=== PATIENT | female | born 1955 | race Caucasian/White ===

== ENCOUNTER → 2017-03-21 | Outpatient (CLI) | payer OTHER ==
[~2017-03-21] MED LIST: CANA300T PO; ESTR0.3T PO; LOSA1TAB69 PO; METF500T4 PO; PROPANOLOL
== END ==
LOC: LABNPT 18:35
PROVIDERS: ATTEND Nurse Practitioner Family
DX: R30.0 Dysuria (principal)
CPT/HCPCS: 87077; 87088; 87186

== ENCOUNTER → 2017-10-22 | Outpatient (CLI) | payer BC ==
[~2017-10-22] MED LIST changes: +LOSA1TAB20 PO; -LOSA1TAB69 PO
== END ==
LOC: RAD 10:56
PROVIDERS: ATTEND Internal Medicine
DX: Z12.31 Encounter for screening mammogram for malignant neoplasm of breast (principal)
CPT/HCPCS: 77067

== ENCOUNTER → 2017-11-08 | Outpatient (CLI) | payer BC ==
--- NOTE | 2017-11-08 14:48 | Diagnostic Imaging Report ---
EXAMINATION: Ultrasound of the right breast. INDICATION: Abnormal mammogram. HISTORY: The screening mammogram performed on 10/22/2017 suggested a small nodular density in the central aspect of the right breast. The diagnostic mammogram performed earlier today in conjunction with this exam suggested that this finding was most likely a benign process. FINDINGS: On this exam, there is a small 7 x 5 x 5 mm hypoechoic lesion with a hyperechoic center in the 4:30 position of the breast roughly 8 cm from the nipple. This has the appearance of a small lymph node . However I'm not certain that this corresponds to the density seen on the mammogram. Even so, there is no other discrete solid or cystic mass visualized. IMPRESSION: The small nodular density seen on the mammogram is of uncertain etiology although most likely benign. There is no evidence for malignancy but a 6 month followup mammogram should be obtained. ACR BI-RADS Category 3: Probably benign findings. Dictated by: Dictated on workstation # [id number]
--- NOTE | 2017-11-08 15:41 | Diagnostic Imaging Report ---
EXAMINATION: Mammogram right diagnostic with CAD. INDICATION: Abnormal mammogram. FINDINGS: The recent screening mammogram performed on 10/22/2017 noted a small nodular density in the central aspect of the right breast on the MLO view. This finding does persist on the compression view of this area in the MLO projection and on the true lateral view. This density is difficult to identify with certainty on the CC projection although it may be in the lateral aspect of the breast. This finding has a generally benign appearance. It may have been present on several prior mammograms although is better visualized on this study. I would recommend that ultrasound be performed for further study. IMPRESSION: The small nodular density in the midportion of the right breast seen previously is most likely a benign process. Ultrasound would be recommended for further study. ACR BI-RADS Category 0: Incomplete. (Needs additional imaging evaluation). Result letter will be mailed to the patient. Note: At least 10% of breast cancer is not imaged by mammography. Dictated by: Dictated on workstation # [id number]
== END ==
LOC: RAD 12:58
PROVIDERS: ATTEND Nurse Practitioner Family
DX: N63.10 Unspecified lump in the right breast, unspecified quadrant (principal)

== ENCOUNTER → 2018-01-28 | Outpatient (CLI) | payer BC ==
--- NOTE | 2018-01-28 08:47 | Diagnostic Imaging Report ---
PROCEDURE: US Thyroid. TECHNIQUE: Multiple real-time grayscale images were obtained of the thyroid in various projections. INDICATION: Thyromegaly. COMPARISON: None. FINDINGS: The left thyroid gland is mildly prominent measuring 5.4 x 1.5 x 1.4 cm. In the mid left thyroid gland, there is a hypoechoic nodule with internal echoes and mild internal vascularity, which has somewhat irregular borders on some images (image 3). This measures 8 x 4 x 6 mm in size. Multiple additional nodules are seen in the left thyroid, measuring approximately 3 mm in size. The echotexture of the thyroid gland is otherwise unremarkable. No hypervascularity is seen. The isthmus appears normal, measuring 3 mm in thickness. The right thyroid gland measures 4.0 x 1.1 x 1.6 cm. Multiple hypoechoic nodules are seen in the right thyroid gland as well. The largest measures 8 x 5 x 6 mm in size, appears cystic, with mild posterior acoustic enhancement, with questionable internal echoes. Additional nodules measure 3-4 mm in size, and are hypoechoic as well. The echotexture of the thyroid gland is otherwise unremarkable, with no hypervascularity seen. IMPRESSION: Multiple small hypoechoic nodules in the thyroid bilaterally, some of which are likely cystic. The largest measure up to 8 mm in diameter. Consider continued sonographic followup to verify stability. Dictated by: Dictated on workstation # [id number]
== END ==
LOC: RAD 07:41
PROVIDERS: ATTEND Nurse Practitioner Family
DX: E04.2 Nontoxic multinodular goiter (principal)
CPT/HCPCS: 76536

== ENCOUNTER 2018-03-30 08:06 | Inpatient (IN) | payer BC ==
[~2018-03-30] VITALS: Ht 163.8 cm; Wt 85.3 kg
[~2018-03-30 08:06] MED LIST changes: -METF500T4 PO; +METF500T5 PO
[2018-03-30] MEDS ORDERED: NS IV 1000 ML 1,000 ML IV ONE (08:26)
[2018-03-30] MEDS ORDERED: METF500T8 PO (08:27)
[2018-03-30] MEDS ORDERED: LIRA0.6P3 SC (08:27)
[2018-03-30] MEDS ORDERED: ASPIRIN 81 MG CHEW (CHILDREN'S ASA) PO ONE (08:30)
[2018-03-30] MEDS ORDERED: raNItidine 50 MG/2 ML INJ (ZANTAC) IJ ONE (08:30)
[2018-03-30] MEDS ORDERED: ONDANSETRON 4 MG/2 ML (SDV) Z0FRAN IVP ONE (08:30)
--- NOTE | 2018-03-30 08:30 | ED Chest Pain ---
General Chief Complaint: Chest Pain Stated Complaint: CP,VOMITING Nursing Triage Note: AMBULATED TO ROOM 07 ET STATES SHE WAS AWAKEND AT 0330 WITH EPIGASTRIC PAIN THAT RADIATES TO HER LOW BACK. STATES SHE HAS BEEN VOMITING BILE AND HAVING DIARRHEA. TOOK A PEPCID THAT DID NOT HELP. Nursing Sepsis Screen: No Definite Risk Source: patient, old records Exam Limitations: no limitations History of Present Illness Date Seen by Provider: Mar 30, 2018 Time Seen by Provider: 08:10 Initial Comments This 62-year-old woman presents to emergency room with complaints of chest pain , epigastric pain, vomiting, and diarrhea that started around 03:30. She woke from sleep with these symptoms. Her chest pain is described as a tightness in the lower sternal area. She identifies no specific alleviating or exacerbating factors. The pain was present before vomiting. She had a little bit of shortness of breath last night but is not short of breath now. She had subjective fever with sweats. She denies any prior episodes but she has had occasional heartburn in the past. She denies any alcohol consumption. She is not a smoker. She has no history of heart disease. She had a stress test in 2010 which was normal. She does have family history of heart disease. She is prediabetic and hypertensive. Allergies and Home Medications Allergies Coded Allergies: latex (Verified Allergy, Severe, SWELLING, 10/15/16) Home Medications Estrogens, Conjugated 0.3 Mg Tablet, 0.3 MG PO DAILY, (Reported) Losartan/Hydrochlorothiazide 1 Each Tablet, 1 EACH PO BID, (Reported) Patient Home Medication List Home Medication List Reviewed: Yes Review of Systems Constitutional: no symptoms reported EENTM: No Symptoms Reported Respiratory: See HPI Cardiovascular: See HPI Gastrointestinal: See HPI Genitourinary: No Symptoms Reported Musculoskeletal: no symptoms reported Skin: no symptoms reported Psychiatric/Neurological: No Symptoms Reported Endocrine: No Symptoms Reported Hematologic/Lymphatic: No Symptoms Reported Past Qezpgfk-[id number]-Xzlkpb Hx Past Med/Social Hx: Reviewed and Corrections made Patient Social History Alcohol Use: Rarely Uses Recreational Drug Use: No Smoking Status: Never a Smoker Recent Foreign Travel: No Contact w/Someone Who Travel: No Recent Infectious Disease Expo: No Recent Hopitalizations: No Immunizations Up To Date Date of Pneumonia Vaccine: Oct 15, 2015 Seasonal Allergies Seasonal Allergies: Yes (MILD) Past Medical History Surgeries: Yes (BACK X2) Hysterectomy, Orthopedic (back and foot surgery) Respiratory: No Pneumonia Cardiac: Yes Hypertension Neurological: No Reproductive Disorders: No 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 Father had CABG.) Physical Exam Vital Signs Vital Signs - First Documented 03/30/18 08:08 Temp 98.0 Pulse 71 Resp 18 B/P (MAP) 147/89 (108) Pulse Ox 100 O2 Delivery Room Air Capillary Refill : Less Than 3 Seconds General Appearance: WD/WN, Other (appears uncomfortable) HEENT: PERRL/EOMI, Normal ENT Inspection, Other (oropharynx dry) Neck: Normal Inspection Respiratory: Lungs Clear, Normal Breath Sounds, No Accessory Muscle Use, No Respiratory Distress Cardiovascular: Regular Rate, Rhythm, No Edema, No Murmur Gastrointestinal: Normal Bowel Sounds, Soft, Tenderness (left upper quadrant) Extremity: Normal Capillary Refill, Normal Inspection, No Calf Tenderness, No Pedal Edema Neurologic/Psychiatric: Alert, Oriented x3, No Motor/Sensory Deficits, Normal Mood/Affect, vp platforms II-XII Norm as Tested Skin: Normal Color, Warm/Dry Progress/Results/Core Measures Results/Orders Lab Results Laboratory Tests Test 03/30/18 08:15 03/30/18 09:35 Range/Units White Blood Count 13.5 H 4.3-11.0 10^3/uL Red Blood Count 4.89 4.35-5.85 10^6/uL Hemoglobin 15.2 11.5-16.0 G/DL Hematocrit 42 35-52 % Mean Corpuscular Volume 86 80-99 FL Mean Corpuscular Hemoglobin 31 25-34 PG Mean Corpuscular Hemoglobin Concent 36 32-36 G/DL Red Cell Distribution Width 12.9 10.0-14.5 % Platelet Count 263 130-400 10^3/uL Mean Platelet Volume 11.0 H 7.4-10.4 FL Neutrophils (%) (Auto) 84 H 42-75 % Lymphocytes (%) (Auto) 11 L 12-44 % Monocytes (%) (Auto) 4 0-12 % Eosinophils (%) (Auto) 1 0-10 % Basophils (%) (Auto) 0 0-10 % Neutrophils # (Auto) 11.3 H 1.8-7.8 X 10^3 Lymphocytes # (Auto) 1.5 1.0-4.0 X 10^3 Monocytes # (Auto) 0.5 0.0-1.0 X 10^3 Eosinophils # (Auto) 0.1 0.0-0.3 10^3/uL Basophils # (Auto) 0.1 0.0-0.1 10^3/uL Prothrombin Time 11.9 L 12.2-14.7 SEC INR Comment 0.9 0.8-1.4 Activated Partial Thromboplast Time 24 24-35 SEC Sodium Level 140 135-145 MMOL/L Potassium Level 3.6 3.6-5.0 MMOL/L Chloride Level 102 98-107 MMOL/L Carbon Dioxide Level 26 21-32 MMOL/L Anion Gap 12 5-14 MMOL/L Blood Urea Nitrogen 17 7-18 MG/DL Creatinine 0.75 0.60-1.30 MG/DL Estimat Glomerular Filtration Rate > 60 BUN/Creatinine Ratio 23 Glucose Level 126 H 70-105 MG/DL Calcium Level 9.5 8.5-10.1 MG/DL Magnesium Level 2.0 1.8-2.4 MG/DL Total Bilirubin 0.6 0.1-1.0 MG/DL Aspartate Amino Transf (AST/SGOT) 23 5-34 U/L Alanine Aminotransferase (ALT/SGPT) 20 0-55 U/L Alkaline Phosphatase 73 40-136 U/L Myoglobin 52.0 10.0-92.0 NG/ML Troponin I < 0.30 <0.30 NG/ML Total Protein 7.3 6.4-8.2 GM/DL Albumin 4.3 3.2-4.5 GM/DL Lipase 66 8-78 U/L Urine Color YELLOW Urine Clarity CLEAR Urine pH 7 5-9 Urine Specific [place] 1.010 L 1.016-1.022 Urine Protein NEGATIVE NEGATIVE Urine Glucose (UA) NEGATIVE NEGATIVE Urine Ketones 2+ H NEGATIVE Urine Nitrite NEGATIVE NEGATIVE Urine Bilirubin NEGATIVE NEGATIVE Urine Urobilinogen NORMAL NORMAL MG/DL Urine Leukocyte Esterase NEGATIVE NEGATIVE Urine RBC (Auto) NEGATIVE NEGATIVE Urine RBC 0-2 /HPF Urine WBC NONE /HPF Urine Squamous Epithelial Cells 2-5 /HPF Urine Crystals NONE /LPF Urine Bacteria TRACE /HPF Urine Casts NONE /LPF Urine Mucus SMALL H /LPF Urine Culture Indicated NO My Orders Orders - AZALEA CARMONA MD Ekg Tracing (03/30/18 08:07) Cbc With Automated Diff (03/30/18 08:25) Magnesium (03/30/18 08:25) Chest 1 View, Ap/Pa Only (03/30/18 08:25) Cardiac Profile 1 (03/30/18 08:25) Comprehensive Metabolic Panel (03/30/18 08:25) Myoglobin Serum (03/30/18 08:25) Protime With Inr (03/30/18 08:25) Partial Thromboplastin Time (03/30/18 08:25) O2 (03/30/18 08:25) Monitor-Rhythm Ecg Trace Only (03/30/18 08:25) Lipid Panel (03/31/18 06:00) Aspirin Chewable Tablet (Baby Aspirin Ch (03/30/18 08:30) Nitroglycerin 0.4 Mg Btl 25's (Nitrostat (03/30/18 08:30) Saline Lock/Iv-Start (03/30/18 08:25) Ondansetron Injection (Zofran Injectio (03/30/18 08:30) Ns Iv 1000 Ml (Sodium Chloride 0.9%) (03/30/18 08:26) Ranitidine Injection (Zantac Injection) (03/30/18 08:30) Lipase (03/30/18 08:30) Lidocaine 2% Viscous 15 Ml (Xylocaine Vi (03/30/18 09:00) Antacid Suspension (Mylanta Suspension (03/30/18 09:00) Fentanyl Injection (Sublimaze Injection (03/30/18 09:45) Ua Culture If Indicated (03/30/18 09:38) Ct [facility] Chest/Noang Abd-Pelv W (03/30/18 09:41) Iohexol Injection (Omnipaque 350 Mg/Ml 1 (03/30/18 10:00) Ns (Ivpb) (Sodium Chloride 0.9%) (03/30/18 10:00) Pharmacy Communication (Pharmacy Communi (03/30/18 09:49) Fentanyl Injection (Sublimaze Injection (03/30/18 11:45) Ciprofloxacin Iv 400mg/200ml (Cipro Iv S (03/30/18 12:45) Medications Given in ED Current Medications Medications Dose Ordered Sig/Jordan Route Start Time Stop Time Status Last Admin Dose Admin Al Hydrox/Mg Hydrox/Simethicone 30 ml ONCE ONCE PO 03/30/18 09:00 03/30/18 09:01 DC 03/30/18 09:05 30 ML Aspirin 324 mg ONCE ONCE PO 03/30/18 08:30 03/30/18 08:31 DC 03/30/18 08:34 324 MG Fentanyl Citrate 50 mcg ONCE ONCE IVP 03/30/18 09:45 03/30/18 09:46 DC 03/30/18 09:44 50 MCG Fentanyl Citrate 75 mcg ONCE ONCE IVP 03/30/18 11:45 03/30/18 11:46 DC 03/30/18 11:50 75 MCG Iohexol 125 ml ONCE ONCE IV 03/30/18 10:00 03/30/18 10:01 DC 03/30/18 10:16 125 ML Lidocaine HCl 15 ml ONCE ONCE PO 03/30/18 09:00 03/30/18 09:01 DC 03/30/18 09:05 15 ML Nitroglycerin 0.4 mg UD PRN SL 03/30/18 08:30 03/30/18 08:41 0.4 MG Ondansetron HCl 8 mg ONCE ONCE IVP 03/30/18 08:30 03/30/18 08:31 DC 03/30/18 08:32 8 MG Ranitidine HCl 50 mg ONCE ONCE IJ 03/30/18 08:30 03/30/18 08:32 DC 03/30/18 08:40 50 MG Sodium Chloride 250 ml ONCE ONCE IV 03/30/18 10:00 03/30/18 10:01 DC 03/30/18 10:16 80 ML Sodium Chloride 1,000 ml @ 0 mls/hr Q0M ONCE IV 03/30/18 08:26 03/30/18 08:27 DC 03/30/18 08:33 1,000 MLS/HR Vital Signs/I&O 03/30/18 08:08 Temp 98.0 Pulse 71 Resp 18 B/P (MAP) 147/89 (108) Pulse Ox 100 O2 Delivery Room Air Blood Pressure Mean: 108 Progress Progress Note #1: Progress Note Patient was seen and examined. Chest pain order set will be followed. Patient will receive aspirin and nitroglycerin. Nausea will be treated with Zofran. Left upper quadrant pain will additionally be treated with ranitidine. EKG was unremarkable. If nitroglycerin does not improve her pain, we will attempt a GI cocktail. Progress Note #2: Time: 08:54 Progress Note Patient's pain decreased from 7/10 down to 6/10 with one nitroglycerin. The second nitroglycerin had no impact on her pain. We will try GI cocktail. Progress Note #3: Time: 12:50 Progress Note GI cocktail was ineffective for treatment of upper abdominal pain. Fentanyl was given and CT scan was pursued for further evaluation. Patient was found to have acute cholecystitis with gallbladder wall thickening and cholelithiasis. Case was reviewed with Dr. Evans who recommends treatment with Cipro and Flagyl as well as admission for anticipated cholecystectomy tomorrow morning. The first dose of Cipro was ordered to be administered in the ER. Initial ECG Impression Date: Mar 30, 2018 Initial ECG Impression Time: 08:11 Initial ECG Rate: 66 Initial ECG Rhythm: Normal Sinus Initial ECG Intervals: Normal Initial ECG Impression: Normal Comment Normal sinus rhythm with no ST elevation or depression. No abnormal intervals or axis deviation. Diagnostic Imaging Diagonstic Imaging: Xray Plain Films/CT/US/NM/MRI: chest Comments Chest x-ray viewed by me and report reviewed. See report below: NAME: LISA [facility] REC#: [id number] PT STATUS: REG ER : 1955 PHYSICIAN: AZALEA CARMONA MD ADMIT DATE: 03/30/18/ER Signed Date of Exam: 03/30/18 CHEST 1 VIEW, AP/PA ONLY Indication: Epigastric pain. Portable chest at 9:02 AM Heart size and pulmonary vascularity are normal. Lungs are clear. There are no effusions or pneumothoraces. Impression: Negative chest. Dictated by: Dictated on workstation # [id number] Dict: 03/30/18 0917 Trans: 03/30/18 1003 Interpreted by: GARRISON RAMIREZ MD Electronically signed by: GARRISON RAMIREZ MD 03/30/18 1003 Diagonstic Imaging: CT Plain Films/CT/US/NM/MRI: chest, abdomen, pelvis Comments CT chest, abdomen and pelvis viewed by me and report reviewed. See report below : NAME: LISA [facility] REC#: [id number] PT STATUS: REG ER : 1955 PHYSICIAN: AZALEA CARMONA MD ADMIT DATE: 03/30/18/ER Signed Date of Exam: 03/30/18 CT MACY CHEST/NOANG ABD-PELV W Indication: Chest pain. Abdominal pain. Comparison: CT lumbar spine dated 08/07/2016 Technique: Postcontrast CTA of the chest, abdomen, and pelvis was performed. Contrast bolus was time for optimal opacification of the arterial structures. Multiplanar and 3-D reformats were also performed and reviewed. Findings: CTA chest: The thoracic aorta is normal in course and caliber. There is no dissection, focal stenosis, nor aneurysm of the thoracic aorta. There is no evidence of pulmonary embolus to the first subsegmental division of the pulmonary arteries. Heart size is within normal limits. There is no large pericardial effusion. No pathologically enlarged or morphologically abnormal adenopathy is seen within the mediastinum, luis alberto, nor axilla. Lung vasques show no focal consolidation, pleural effusion, nor pneumothorax. There is mild dependent atelectasis, bilaterally. No suspicious pulmonary nodules or masses are identified. Bony structures show no acute abnormality. CTA abdomen: There is mild scattered calcified abdominal aortic atherosclerosis. There is no evidence of dissection, focal stenosis, nor aneurysm. The celiac trunk and superior mesenteric arteries are patent, as are their major branches. There are single renal arteries, bilaterally. Renal arteries are widely patent. Inferior mesenteric artery is patent as well. There is cholelithiasis. Note is also made of significant abnormal gallbladder wall thickening and mild distention of the gallbladder. Gallstones are large. Largest measures approximately 2.2 cm in diameter. There is nutmeg enhancement pattern to the liver. Benign cyst is noted within segment 2 of the liver. There is a small nodular focus involving the lateral genu of the left adrenal gland that measures 7 mm. This is incompletely characterized on this exam. There is no prior available for comparison. Otherwise, the right adrenal gland, spleen, pancreas, and kidneys have a normal CT appearance. Small bowel loops are nondistended. Normal appendix cannot be adequately identified. There is apparent thickening of the colon extending from the hepatic flexure through the transverse, descending, and sigmoid colon. This portion of the colon however is decompressed. There is no loculated fluid collection or free air within the abdomen. No abnormal mesenteric or retroperitoneal adenopathy is seen. Bony structures show no acute abnormalities. CTA pelvis: There is no significant atherosclerotic disease of the iliofemoral arteries. There is no focal stenosis. Small amount of free fluid is noted within the pelvis. There is no loculated fluid collection or free air. Urinary bladder is grossly unremarkable. No abnormal lymph nodes are identified. Bony structures show postsurgical changes of the lumbar spine, but no acute abnormalities. Impression: 1. Cholelithiasis with gallbladder wall thickening and mild distention of the gallbladder. Findings are concerning for acute cholecystitis. Please note, gallbladder wall thickening can also be seen secondary to underlying hepatitis and congestive right heart failure. Clinical correlation recommended. If further imaging evaluation is indicated, right upper quadrant abdominal sonogram or HIDA scan is recommended. 2. Nutmeg appearance to the liver. Findings are nonspecific, but can be seen with underlying congestive heart failure or constrictive pericarditis. Findings can also be seen with hepatic venoocclusive disease/Budd-Chiari syndrome. 3. Normal CTA of the chest. 4. Mild calcified abdominal aortic atherosclerosis. 5. Small amount of free fluid within the pelvis. 6. Thickened appearance to the left:. Findings however may be artifactual and related to nondistention. Other considerations include nonspecific infectious or inflammatory colitis, although this is felt to be less likely. Dictated by: Dictated on workstation # [id number] Dict: 03/30/18 1054 Trans: 03/30/18 1152 Interpreted by: SHEILA CARTAGENA MD Electronically signed by: SHEILA CARTAGENA MD 03/30/18 1152 Departure Communication (Admissions) Time/Spoke to Admitting Phy: 12:40 Dr. Evans Impression Primary Impression: Acute cholecystitis Additional Impressions: Nausea vomiting and diarrhea Chest pain Qualified Codes: R07.9 - Chest pain, unspecified Disposition: ADMITTED INPATIENT Condition: Improved Admissions Decision to Admit Reason: Admit from ER (General) Decision to Admit/Date: Mar 30, 2018 Time/Decision to Admit Time: 12:20 Departure-Patient Inst. Referrals: LOYD MCCRAY DO (PCP) Primary Care Physician MEHNAZ MCCRAY, SUE (Family) Primary Care Physician AZALEA CARMONA MD Mar 30, 2018 08:30
[2018-03-30 08:31] LABS: BASOPHILS # (AUTO) 0.1 10^3/uL (0.0-0.1); BASOPHILS % (AUTO) 0 % (0-10); EOSINOPHILS # (AUTO) 0.1 10^3/uL (0.0-0.3); EOSINOPHILS % (AUTO) 1 % (0-10); HEMATOCRIT 42 % (35-52); HEMOGLOBIN 15.2 G/DL (11.5-16.0); LYMPHOCYTES # (AUTO) 1.5 X 10^3 (1.0-4.0); LYMPHOCYTES % (AUTO) 11 % (12-44); MEAN CORPUSCULAR HEMOGLOBIN 31 PG (25-34); MEAN CORPUSCULAR HGB CONC 36 G/DL (32-36); MEAN CORPUSCULAR VOLUME 86 FL (80-99); MONOCYTES # (AUTO) 0.5 X 10^3 (0.0-1.0); MONOCYTES % (AUTO) 4 % (0-12); NEUTROPHILS # (AUTO) 11.3 X 10^3 (1.8-7.8); NEUTROPHILS % (AUTO) 84 % (42-75); PLATELET COUNT 263 10^3/uL (130-400); RED BLOOD COUNT 4.89 10^6/uL (4.35-5.85); RED CELL DISTRIBUTION WIDTH 12.9 % (10.0-14.5); WHITE BLOOD COUNT 13.5 10^3/uL (4.3-11.0)
[2018-03-30] MEDS: NITROGLYCERIN 0.4 MG SL TABS BTL 25'S SL PRN ×2 (08:34→08:41)
[2018-03-30 08:37] LABS: INR 0.9 (0.8-1.4); PROTHROMBIN TIME PATIENT 11.9 SEC (12.2-14.7)
[2018-03-30 08:50] LABS: ALANINE AMINOTRANSFERASE 20 U/L (0-55); ALBUMIN 4.3 GM/DL (3.2-4.5); ALKALINE PHOSPHATASE 73 U/L (40-136); BILIRUBIN,TOTAL 0.6 MG/DL (0.1-1.0); BUN/CREATININE RATIO 23; CALCIUM 9.5 MG/DL (8.5-10.1); CARBON DIOXIDE 26 MMOL/L (21-32); CHLORIDE 102 MMOL/L (98-107); CREATININE SERUM 0.75 MG/DL (0.60-1.30); GFR ESTIMATED > 60; GLUCOSE 126 MG/DL (70-105); POTASSIUM 3.6 MMOL/L (3.6-5.0); SODIUM 140 MMOL/L (135-145); TOTAL PROTEIN 7.3 GM/DL (6.4-8.2)
[2018-03-30] MEDS ORDERED: ANTACID SUSP 30 ML UDC (MYLANTA) PO ONE (09:00)
[2018-03-30] MEDS ORDERED: LIDOCAINE 2% VISCOUS 15 ML UDC PO ONE (09:00)
--- NOTE | 2018-03-30 09:20 | Diagnostic Imaging Report ---
Indication: Epigastric pain. Portable chest at 9:02 AM Heart size and pulmonary vascularity are normal. Lungs are clear. There are no effusions or pneumothoraces. Impression: Negative chest. Dictated by: Dictated on workstation # [id number]
[2018-03-30] MEDS ORDERED: fentaNYL INJECTION 100 MCG/2 ML AMP IVP ONE ×2 (09:45→11:45)
[2018-03-30 09:56] LABS: BILIRUBIN,URINE NEGATIVE (NEGATIVE); CLARITY,URINE CLEAR; COLOR,URINE YELLOW; GLUCOSE, URINE (UA) NEGATIVE (NEGATIVE); KETONES,URINE 2+ (NEGATIVE); LEUKOCYTE ESTERASE ,URINE NEGATIVE (NEGATIVE); NITRITE,URINE NEGATIVE (NEGATIVE); PH,URINE 7 (5-9); PROTEIN,URINE NEGATIVE (NEGATIVE); UROBILINOGEN,URINE NORMAL (NORMAL)
[2018-03-30] MEDS ORDERED: IOHEXOL 350 MG/ML 150 ML (OMNIPAQUE 350) VIAL IV ONE (10:00)
[2018-03-30] MEDS ORDERED: NS 250 ML (IVPB) BAG IV ONE (10:00)
[2018-03-30 10:07] LABS: BACTERIA,URINE TRACE /HPF; RBC,URINE 0-2 /HPF
--- NOTE | 2018-03-30 11:18 | Diagnostic Imaging Report ---
Indication: Chest pain. Abdominal pain. Comparison: CT lumbar spine dated 08/07/2016 Technique: Postcontrast CTA of the chest, abdomen, and pelvis was performed. Contrast bolus was time for optimal opacification of the arterial structures. Multiplanar and 3-D reformats were also performed and reviewed. Findings: CTA chest: The thoracic aorta is normal in course and caliber. There is no dissection, focal stenosis, nor aneurysm of the thoracic aorta. There is no evidence of pulmonary embolus to the first subsegmental division of the pulmonary arteries. Heart size is within normal limits. There is no large pericardial effusion. No pathologically enlarged or morphologically abnormal adenopathy is seen within the mediastinum, luis alberto, nor axilla. Lung vasques show no focal consolidation, pleural effusion, nor pneumothorax. There is mild dependent atelectasis, bilaterally. No suspicious pulmonary nodules or masses are identified. Bony structures show no acute abnormality. CTA abdomen: There is mild scattered calcified abdominal aortic atherosclerosis. There is no evidence of dissection, focal stenosis, nor aneurysm. The celiac trunk and superior mesenteric arteries are patent, as are their major branches. There are single renal arteries, bilaterally. Renal arteries are widely patent. Inferior mesenteric artery is patent as well. There is cholelithiasis. Note is also made of significant abnormal gallbladder wall thickening and mild distention of the gallbladder. Gallstones are large. Largest measures approximately 2.2 cm in diameter. There is nutmeg enhancement pattern to the liver. Benign cyst is noted within segment 2 of the liver. There is a small nodular focus involving the lateral genu of the left adrenal gland that measures 7 mm. This is incompletely characterized on this exam. There is no prior available for comparison. Otherwise, the right adrenal gland, spleen, pancreas, and kidneys have a normal CT appearance. Small bowel loops are nondistended. Normal appendix cannot be adequately identified. There is apparent thickening of the colon extending from the hepatic flexure through the transverse, descending, and sigmoid colon. This portion of the colon however is decompressed. There is no loculated fluid collection or free air within the abdomen. No abnormal mesenteric or retroperitoneal adenopathy is seen. Bony structures show no acute abnormalities. CTA pelvis: There is no significant atherosclerotic disease of the iliofemoral arteries. There is no focal stenosis. Small amount of free fluid is noted within the pelvis. There is no loculated fluid collection or free air. Urinary bladder is grossly unremarkable. No abnormal lymph nodes are identified. Bony structures show postsurgical changes of the lumbar spine, but no acute abnormalities. Impression: 1. Cholelithiasis with gallbladder wall thickening and mild distention of the gallbladder. Findings are concerning for acute cholecystitis. Please note, gallbladder wall thickening can also be seen secondary to underlying hepatitis and congestive right heart failure. Clinical correlation recommended. If further imaging evaluation is indicated, right upper quadrant abdominal sonogram or HIDA scan is recommended. 2. Nutmeg appearance to the liver. Findings are nonspecific, but can be seen with underlying congestive heart failure or constrictive pericarditis. Findings can also be seen with hepatic venoocclusive disease/Budd-Chiari syndrome. 3. Normal CTA of the chest. 4. Mild calcified abdominal aortic atherosclerosis. 5. Small amount of free fluid within the pelvis. 6. Thickened appearance to the left:. Findings however may be artifactual and related to nondistention. Other considerations include nonspecific infectious or inflammatory colitis, although this is felt to be less likely. Dictated by: Dictated on workstation # [id number]
[2018-03-30] MEDS ORDERED: CIPROFLOXACIN IV 400MG/200ML 200 ML IV ONE (12:45)
[2018-03-30] MEDS ORDERED: metroNIDAZOLE 500MG/100ML IVPB 100 ML IV SCH (13:30)
[2018-03-30] MEDS ORDERED: CATHETER FLUSH 10 ML SYR IV PRN (13:45)
[2018-03-30] MEDS ORDERED: ONDANSETRON 4 MG/2 ML (SDV) Z0FRAN IV PRN (13:45)
[2018-03-30] MEDS ORDERED: HYDROcodone/APAP 5 MG/325 MG (LORTAB) TAB PO PRN (13:45)
[2018-03-30] MEDS ORDERED: PROP20TA5 PO (13:48)
[2018-03-30] MEDS: NS W/KCL 20 MEQ/L 1,000 ML IV SCH ×2 (14:02→22:12)
[2018-03-30] MEDS: fentaNYL INJECTION 100 MCG/2 ML AMP IV PRN ×2 (14:02→18:40)
[2018-03-30] MEDS ORDERED: CYAN10006 PO (14:42)
[2018-03-30] MEDS ORDERED: CHOL10007 PO (14:42)
[2018-03-30] MEDS ORDERED: MAGN400T6 PO (14:42)
--- NOTE | 2018-03-30 14:49 | Progress Note-Pre Operative ---
Pre-Operative Progress Note H&P Reviewed The H&P was reviewed, patient examined and no changes noted. Date Seen by Provider: Mar 30, 2018 Time Seen by Provider: 14:45 Date H&P Reviewed: Mar 30, 2018 Time H&P Reviewed: 14:45 Pre-Operative Diagnosis: acute calculous cholecystitis ALIA COTO MD Mar 30, 2018 14:49
--- NOTE | 2018-03-30 15:25 | HISTORY AND PHYSICAL ---
DATE OF SERVICE: ATTENDING PRIMARY CARE PHYSICIAN: Dr. Farias. HISTORY OF PRESENT ILLNESS: The patient is a 62-year-old female who presented to the Emergency Department with chest pain in the left lower region as well as the epigastric region. She also had reported nausea and vomiting overnight as well as diarrhea starting early this morning. She does not report any previous symptoms related to this before in the past as well as no history of known heart problems. Her only risk factor that she knows of is hypertension and an early onset diabetes. She also reports that she has occasional heartburn; however, this is usually after alcohol consumption. A CT scan was performed of the chest and abdomen. The chest appeared normal. Cardiac workup was also normal. The CT scan of the abdomen did show gallbladder with thickened wall as well as multiple gallstones consistent with an acute on chronic calculous cholecystitis. There is also a mild amount of inflammation noted of the colon, which may indicate a low level colitis of unknown etiology at this time. PAST MEDICAL HISTORY: Hypertension, early diabetes, degenerative joint disease. PAST SURGICAL HISTORY: Lumbar vertebral ORIF with revision, total transvaginal hysterectomy, left fifth toe neuroma excision. ALLERGIES: LATEX. MEDICATIONS: Estrogen 0.3 mg daily, losartan/hydrochlorothiazide b.i.d. SOCIAL HISTORY: Negative smoke, rare social alcohol. FAMILY HISTORY: Daughter with melanoma. Father heart disease. Mother, heart disease. VITAL SIGNS: Temperature 98.0, blood pressure 147/89, pulse 71, respirations 18, pulse ox 100% on room air. REVIEW OF SYSTEMS: Well-nourished female currently in no acute distress. She is not experiencing any shortness of breath or difficulty breathing. No chest pain, palpitations, diaphoresis. No nausea, vomiting. Has not had a bowel movement since admission. No fever, chills. No recent inadvertent weight loss. No red blood per rectum, no dark tarry stools. No recent inadvertent weight loss. All other review of systems negative. PHYSICAL EXAMINATION: CHEST: Clear. Good breath sounds bilaterally. HEART: Regular, no murmurs. EXTREMITIES: No lower extremity edema, negative Homans sign. HEENT: No scleral icterus. NECK: No cervical lymphadenopathy. ABDOMEN: Soft, nondistended. There is pain in the right upper abdominal quadrant with a positive Whaley sign. There is also mild mid abdominal pain upon palpation as well. However, no peritoneal signs. SKIN: Warm, dry. LABORATORY DATA: WBC 13.5, hemoglobin 15.2, hematocrit 42, platelets 263, total bilirubin 0.6, lipase 66. ASSESSMENT AND PLAN: A 62-year-old female with acute on chronic calculous cholecystitis. The natural history of this disease process was explained to the patient as well as risk for recurrence and other complications including abscess and perforation. She is in full understanding of this and would like to proceed with a laparoscopic cholecystectomy which we will schedule. It appears that she also does have a mild colitis; however, this may be due to recent diarrhea which may need to be evaluated at a later time. She did have a colonoscopy approximately 2007 and does not remember any abnormalities at that time. Job ID: [id number] DocumentID: [id number] Dictated Date: 03/30/2018 14:57:03 Web Feeder Date: 03/30/2018 15:24:44 Dictated By: ALIA COTO MD MTDD
[2018-03-30 16:00] VITALS: BP 130/61
[2018-03-30 19:30] VITALS: BP 132/62
[2018-03-30] MEDS: metroNIDAZOLE 500MG/100ML IVPB 100 ML IV SCH (20:57)
[2018-03-30] MEDS: FAMOTIDINE 20 MG (PEPCID) TABLET PO SCH (20:57)
[2018-03-30] MEDS: CIPROFLOXACIN IV 400MG/200ML 200 ML IV SCH (22:12)
[2018-03-30] MEDS: ACETAMINOPHEN 325 MG TABLET/CAPLET (TYLENOL) PO PRN (22:27)
[2018-03-31] VITALS (8 sets, daily range): BP systolic 93–184; BP diastolic 46–86
[2018-03-31] MEDS: NS W/KCL 20 MEQ/L 1,000 ML IV SCH ×2 (03:08→14:31)
[2018-03-31] MEDS: metroNIDAZOLE 500MG/100ML IVPB 100 ML IV SCH ×3 (03:09→14:42)
[2018-03-31] MEDS: ACETAMINOPHEN 325 MG TABLET/CAPLET (TYLENOL) PO PRN (03:15)
[2018-03-31 06:08] LABS: CHOLESTEROL 156 MG/DL (< 200); HDL CHOLESTEROL 44 MG/DL (40-60); TRIGLYCERIDES 87 MG/DL (<150); VLDL CHOLESTEROL 17 MG/DL (5-40)
[2018-03-31] MEDS: FAMOTIDINE 20 MG (PEPCID) TABLET PO SCH ×2 (08:10→20:52)
[2018-03-31] MEDS: CIPROFLOXACIN IV 400MG/200ML 200 ML IV SCH (09:33)
[2018-03-31] MEDS ORDERED: BUP/EPI 0.5% 1:200,000 (SENSORCAINE) 30 ML VIAL ONE (12:15)
[2018-03-31] MEDS ORDERED: proPOfol 200 MG/20 ML (DIPRIVAN) VIAL IV ONE (14:03)
[2018-03-31] MEDS ORDERED: fentaNYL INJECTION 100 MCG/2 ML AMP ONE ×2 (14:03→15:23)
[2018-03-31] MEDS ORDERED: LIDOCAINE PF 2% 5 ML (XYLOCAINE) VIAL ONE (14:03)
[2018-03-31] MEDS ORDERED: SEVOFLURANE (ULTANE) 15 ML INHAL SOLN ONE ×3 (14:03→16:21)
[2018-03-31] MEDS ORDERED: ONDANSETRON 4 MG/2 ML (SDV) Z0FRAN ONE (14:03)
[2018-03-31] MEDS ORDERED: MIDAZOLAM 2 MG/2 ML (VERSED) VIAL ONE (14:04)
[2018-03-31] MEDS ORDERED: ROCURONIUM 10 MG/ML 5 ML SYRINGE IV ONE (14:07)
[2018-03-31] MEDS ORDERED: ceFAZolin 1,000 MG (ANCEF) VIAL ONE (14:18)
[2018-03-31] MEDS ORDERED: FAMOTIDINE 20MG/2ML IV (PEPCID) ONE (14:41)
[2018-03-31] MEDS: LACTATED RINGERS 1,000 ML IV PRN ×2 (14:42→15:28)
[2018-03-31] MEDS ORDERED: HYDROmorphone 1 MG/ML (DILAUDID) 1 ML SYRINGE ONE (15:02)
[2018-03-31] MEDS ORDERED: GLYCOPYRROLATE 0.2 MG/ML (ROBINUL) 2 ML VIAL ONE (15:43)
[2018-03-31] MEDS ORDERED: NEOSTIGMINE 1 MG/ML 5 ML SYRINGE ONE (15:43)
[2018-03-31] MEDS ORDERED: ROPIVACAINE 5MG/ML 30ML VIAL ONE (15:48)
--- NOTE | 2018-03-31 16:21 | Progress Note-Post Operative ---
Post-Operative Progess Note Surgeon (s)/Linux Vmware Administrator (s) Surgeon ALIA COTO MD Linux Vmware Administrator: [facility] Pre-Operative Diagnosis acute calculous cholecystitis Post-Operative Diagnosis same Procedure & Operative Findings Date of Procedure 03/31/18 Procedure Performed/Findings laparoscopic cholecystectomy Anesthesia Type GET Estimated Blood Loss Estimated blood loss (mL): minimal Specimens/Packing Specimens Removed gallbladder ALIA COTO MD Mar 31, 2018 4:21 pm
[2018-03-31] MEDS ORDERED: HYDR-34 PO (16:24)
--- NOTE | 2018-03-31 16:25 | Discharge Inst-Surgical ---
D/C Lap Instructions-CHICA New, Converted, or Re-Newed RX: RX on Chart Follow Up Appt in 2 weeks Activity as tolerated No driving for 24 hours No driving while on pain medications Incentive Spirometry use every 2 hours while awake Regular Diet Symptoms to Report: Fever over 101 degree F, Nausea/Vomiting Infection Signs and Symptoms to report: Increased redness, Foul odor of wound, Increased drainage Bathing instructions: May shower Operative Area Clean/Dry; Keep incision clean/dry If any problems/questions: Contact your physician or go to Emergency Room ALIA COTO MD Mar 31, 2018 4:25 pm
[2018-03-31] MEDS ORDERED: MEPERIDINE (DEMEROL) INJ 50 MG/ML IVP PRN (17:00)
[2018-03-31] MEDS: fentaNYL INJECTION 100 MCG/2 ML AMP IVP PRN ×2 (17:00→17:10)
[2018-03-31] MEDS ORDERED: ONDANSETRON 4 MG/2 ML (SDV) Z0FRAN IVP PRN (17:00)
--- NOTE | 2018-03-31 17:21 | Anesthesia-General Post-Op ---
General Patient Condition Mental Status/LOC: Same as Preop Cardiovascular: Satisfactory Nausea/Vomiting: Absent Respiratory: Satisfactory Pain: Controlled Complications: Absent Post Op Complications Complications None Follow Up Care/Instructions Patient Instructions None needed. Anesthesia/Patient Condition Patient Condition Patient is doing well, no complaints, stable vital signs, no apparent adverse anesthesia problems. No complications reported per nursing. CONCHIS VILLEGAS CRNA Mar 31, 2018 17:21
--- NOTE | 2018-03-31 19:43 | OPERATIVE REPORT ---
DATE OF SERVICE: 03/31/2018 ATTENDING PRIMARY CARE PHYSICIAN: Dr. Farias. PREOPERATIVE DIAGNOSIS: Acute calculous cholecystitis. POSTOPERATIVE DIAGNOSIS: Acute calculous cholecystitis. PROCEDURE: Laparoscopic cholecystectomy. SURGEON: Alia Coto MD ANESTHESIA: General endotracheal. ESTIMATED BLOOD LOSS: Minimal. FINDINGS: Acute gallbladder wall inflammation and edema, no perforation. Multiple large gallstones. DISPOSITION: The patient tolerated the procedure well. INDICATIONS: The patient is a 62-year-old female who presented to the Emergency Department with chest pain in the left lower region as well as epigastric region. 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 She does not report any previous symptoms related to this before in the past as well as no history of known heart problems. Her only risk factor she knows is hypertension as well as early onset diabetes. She reports that she does have occasional episodes of heartburn; however, this was usually after alcohol consumption. A CT scan was performed of the chest and abdomen. The chest appeared normal as well as a cardiac workup. CT scan of the abdomen did show gallbladder wall thickening as well as multiple gallstones. There is also mild inflammation of the colon, which may indicate a colitis of unknown etiology at this time. She does not report taking antibiotics for another reason in recent weeks or months. DESCRIPTION OF PROCEDURE: The patient was brought to the operating room, laid supine on the table. After adequate IV pain and sedating medications and general endotracheal intubation, the abdomen was prepped and draped in standard surgical fashion. A 0.5% Marcaine with epinephrine was then used to anesthetize the overlying skin in the left upper abdominal quadrant and a small transverse skin incision made using a 15 blade. An 0 silk suture was applied to the medial aspect of the incision for retraction and a Veress needle inserted with a low opening pressure of 0 mmHg and the abdomen was then insufflated to 15 mmHg pressure. The Veress needle was removed and a 5 mm Xcel visualizing the peritoneal cavity. A 4-quadrant abdominal exploration was performed. There was gallbladder wall thickening, distention as well as the edema and flores-edema around the gallbladder consistent with an acute cholecystitis. What was visualized the liver, omentum, small bowel appeared normal. Under direct visualization, we then proceeded to place a supraumbilical 10 mm port after the skin and peritoneal lining were anesthetized using 0.5% Marcaine with epinephrine and a transverse skin incision made using a 15 blade. A right upper abdominal quadrant 5 mm port was then placed under direct visualization. The gallbladder was first decompressed with a laparoscopic needle and suctioned with draining of bile. The fundus of the gallbladder was then retracted anteriorly and superiorly. The patient was then placed in reverse Trendelenburg position as well as plane right side up, left side down. The omental adhesions were then taken down using blunt dissection as well as electrocautery on the hook instrument. The hepatoduodenal ligament was then opened using the hook instrument and electrocautery as well as blunt dissection. The entire critical view of safety was identified including the triangle of Calot as well as the cystic duct and artery as the only two structures going into the gallbladder as well as the cystic plate behind the proximal gallbladder. A timeout was then taken. The cystic duct and artery were then clipped proximally, distally and cut with EndoShears. The gallbladder was then dissected off of the liver bed using electrocautery and hook instrument with visualization of good hemostasis as well as no leaking ducts of Luschka. The area was then copiously irrigated and suctioned out with visualization of good hemostasis. The gallbladder was removed through the 10 mm port site using an EndoCatch bag. The 10 mm port site fascia and peritoneum were then closed using a 0 Vicryl suture on a UR needle [id number] style. The remaining ports removed and all skin incisions were closed using 4-0 Monocryl running subcuticular sutures. The patient tolerated the procedure well. We will start IV and oral pain medication as well as a clear liquid diet. Once she is tolerating clears, has good pain control with oral pain medications, ambulating well, we will discharge her home. We will have her do no heavy lifting or exertion for the next two weeks as well. Job ID: [id number] DocumentID: [id number] Dictated Date: 03/31/2018 16:33:26 Drywall Hanger Framer Date: 03/31/2018 19:43:09 Dictated By: ALIA COTO MD [facility]
[2018-03-31] MEDS ORDERED: HYDROcodone/APAP 7.5 MG/325 MG (LORTAB, LORCET PLUS) TABLET PO PRN (21:15)
[2018-03-31] MEDS ORDERED: CIPROFLOXACIN 500 MG (CIPRO) TABLET PO SCH (21:15)
[2018-03-31] MEDS ORDERED: metroNIDAZOLE 500 MG (FLAGYL) TAB PO SCH (21:15)
[2018-04-01 00:01] VITALS: BP 127/62
[2018-04-01 04:53] VITALS: BP 135/63
[2018-04-01 07:59] VITALS: BP 135/63
== END 2018-04-01 08:03 | disposition home or self-care (01) | DRG 419 ==
LOC: EDUNIT# 08:06 → ER 08:07 → 4TH 12:47
PROVIDERS: ADMIT Surgery; ATTEND Surgery
PROC: 0FT44ZZ Resection of Gallbladder, Percutaneous Endoscopic Approach (ICD-10-PCS; principal; 2018-03-31 14:44)
DX: K80.12 Calculus of gallbladder with acute and chronic cholecystitis without obstruction (principal); K52.9 Noninfective gastroenteritis and colitis, unspecified; I10 Essential (primary) hypertension; R73.03 Prediabetes; J30.2 Other seasonal allergic rhinitis; M19.041 Primary osteoarthritis, right hand; M19.042 Primary osteoarthritis, left hand; M16.0 Bilateral primary osteoarthritis of hip; Z82.49 Family history of ischemic heart disease and other diseases of the circulatory system; Z90.710 Acquired absence of both cervix and uterus; Z79.890 Hormone replacement therapy
CPT/HCPCS: 36415; 71045; 71275; 74177; 80053; 80061; 81000; 83690; 83735; 83874; 84484; 85025; 85610; 85730; 87081; 88304; 93005; 93041; 96361; 96374; 96375; 96376

== ENCOUNTER → 2018-04-08 | Outpatient (CLI) | payer BC ==
[~2018-04-08] MED LIST changes: +CHOL10007 PO; +CYAN10006 PO; +HYDR-34 PO; +LIRA0.6P3 SC; +MAGN400T6 PO; +METF500T8 PO; +PROP20TA5 PO
--- NOTE | 2018-04-08 09:57 | Diagnostic Imaging Report ---
INDICATION: Six-month followup right breast nodule. COMPARISON: 10/22/2017 and 11/08/2017. TECHNIQUE: 2D and 3D unilateral right diagnostic mammography was performed including CC, MLO, and ML views. The current study was also evaluated with a Computer Aided Detection (CAD) system. FINDINGS: The circumscribed nodular density in the right breast is again noted. This appears to be laterally located at approximately the 9 o'clock location 5 cm from the nipple. No associated calcifications are seen. No other masses are identified. The right axilla is unremarkable. IMPRESSION: Stable circumscribed nodule at approximately the 9 o'clock location of the right breast 5 cm from the nipple when compared with the prior mammograms. This has fairly benign features. Even so, sonographic interrogation is recommended for further evaluation. ACR BI-RADS Category 0: Incomplete. (Needs additional imaging evaluation). Result letter will be mailed to the patient. Note: At least 10% of breast cancer is not imaged by mammography. Dictated by: Dictated on workstation # [id number]
--- NOTE | 2018-04-08 11:49 | Diagnostic Imaging Report ---
INDICATION: Right breast nodule. COMPARISON: Correlation is made with the diagnostic mammogram from earlier this same day. TECHNIQUE: Sonographic interrogation of the outer right breast was performed. FINDINGS: No sonographic abnormality is seen. No solid or cystic mass is detected to account for the circumscribed nodular density at the 9 o'clock location on mammography. In addition, the previously noted lymph node at the 4:30 location of the left breast is no longer visualized. IMPRESSION: No sonographic abnormality is identified. A 6 month followup mammogram is recommended to show continued stability of the tiny circumscribed nodule in the central slightly outer right breast 5 cm from the nipple, best seen mammographically. ACR BI-RADS Category 3: Probably benign findings. Result letter will be mailed to the patient. Note: At least 10% of breast cancer is not imaged by mammography. Dictated by: Dictated on workstation # [id number]
== END ==
LOC: RAD 09:08
PROVIDERS: ATTEND Internal Medicine
DX: N63.10 Unspecified lump in the right breast, unspecified quadrant (principal)

== ENCOUNTER → 2018-05-02 | Outpatient (CLI) | payer BC ==
[2018-05-05 13:42] LABS: CREATININE CAT FR MG/DL 64 mg/dL; EPINEPHRINE RATIO 3 ug/g CRT (0-20); URINE VOLUME CAT 1800 mL
== END ==
LOC: LAB 07:18
PROVIDERS: ATTEND Internal Medicine Endocrinology, Diabetes & Metabolism
DX: E27.8 Other specified disorders of adrenal gland (principal)
CPT/HCPCS: 82384; 82530; 83835

== ENCOUNTER 2018-05-27 05:21 | Outpatient (CLI) | payer BC ==
[~2018-05-27] VITALS: Ht 163.8 cm; Wt 85.3 kg
== END 2018-05-27 10:42 ==
LOC: PREOP 05:21
PROVIDERS: ATTEND Surgery
DX: Z01.818 Encounter for other preprocedural examination (principal); Z12.11 Encounter for screening for malignant neoplasm of colon

== ENCOUNTER 2018-06-03 10:59 | Day surgery (SDC) | payer BC ==
[~2018-06-03] VITALS: Ht 163.8 cm; Wt 85.3 kg
[2018-06-03] MEDS ORDERED: NS IV 500 ML 500 ML IV PRN (11:07)
--- OUTSIDE RECORDS SUMMARY | 2018-06-03 11:09 | XMS REPORT | Continuity of Care Document ---
Author Author [facility] Organization [facility] Address Unknown Phone Unavailable Allergies Active Description Code Type Severity Reaction Onset Reported/Identified Relationship to Patient Clinical Status Yes latex [id number] Drug Allergy Severe SWELLING 10/15/2016 Medications There is no data. Problems Date Dx Coded Attending Type Code Diagnosis Diagnosed By 06/10/2015 JEREMY ARNETT DO Ot 349.0 LUMBAR PUNCTURE REACTION 06/10/2015 JEREMY ARNETT DO Ot 784.0 HEADACHE 08/29/2015 LOYD MCCRAY DO Ot Z00.00 10/04/2015 EARL PINTO, ALYSE Laird Z09 10/04/2015 EARL PINTO, ALYSE Ot Z98.1 12/20/2015 Ot V76.12 12/20/2015 Ot 786.50 12/20/2015 Ot V58.69 12/20/2015 Ot V76.12 12/20/2015 MEHNAZ MCCRAY TACTICAL/MOBILE WATCH OFFICER Ot V76.12 12/20/2015 MEHNAZ DELAROSA BLADDER BLOWER Ot 793.80 12/20/2015 SANTANA PINTO, PETAR Mckee Ot 786.2 12/20/2015 CHRIS MCCRAYIA L TACTICAL/MOBILE WATCH OFFICER Ot 793.80 12/20/2015 MEHNAZ MCCRAY TACTICAL/MOBILE WATCH OFFICER Ot V67.9 12/20/2015 MARY MCCRAYRICIA L TACTICAL/MOBILE WATCH OFFICER Ot 251.2 12/20/2015 CHRIS MCCRAYIA L TACTICAL/MOBILE WATCH OFFICER Ot 401.9 12/20/2015 ALLY PINTO, MEGAN Reynolds Ot 724.5 12/20/2015 LOYD MCCRAY DO Ot 793.80 12/20/2015 MEHANZ MCCRAY L TACTICAL/MOBILE WATCH OFFICER Ot 401.9 12/20/2015 MEHNAZ MCCRAY L TACTICAL/MOBILE WATCH OFFICER Ot V72.83 12/20/2015 MEHNAZ MCCRAY TACTICAL/MOBILE WATCH OFFICER Ot V74.8 12/20/2015 EARL PINTO, ALYSE Ot 738.4 12/20/2015 EARL PINTO, ALYSE Ot V45.4 12/20/2015 EARL PINTO, ALYSE Ot 738.4 12/20/2015 EARL PINTO, ALYSE Ot V45.4 12/20/2015 EARL PINTO, ALYSE Ot V67.09 12/20/2015 MEHNAZ MCCRAY TACTICAL/MOBILE WATCH OFFICER Ot 611.71 12/20/2015 MEHNAZ MCCRAY TACTICAL/MOBILE WATCH OFFICER Ot 756.12 12/20/2015 MEHNAZ MCCRAY TACTICAL/MOBILE WATCH OFFICER Ot V45.4 12/20/2015 MEHNAZ MCCRAY TACTICAL/MOBILE WATCH OFFICER Ot V67.09 12/20/2015 LOYD MCCRAY DO Ot Z00.00 12/20/2015 EARL PINTO, ALYSE Ot Z09 12/20/2015 EARL PINTO, ALYSE Ot Z98.1 01/06/2016 EARL PINTO, ALYSE Ot M43.16 01/06/2016 EARL PINTO, ALYSE Ot M47.896 01/06/2016 EARL PINTO, ALYSE Ot M53.2X7 01/06/2016 EARL PINTO, ALYSE Ot M54.10 01/06/2016 EARL PINTO, ALYSE Ot Z09 01/06/2016 EARL PINTO, ALYSE Ot Z98.1 02/06/2016 EARL PINTO, ALYSE Ot M43.16 02/06/2016 EARL PINTO, ALYSE Ot M47.896 02/06/2016 EARL PINTO, ALYSE Ot M53.2X7 02/06/2016 EARL PINTO, ALYSE Ot M54.10 02/06/2016 EARL PINTO, ALYSE Ot Z09 02/06/2016 EARL PINTO, ALYSE Ot Z98.1 08/04/2016 LOYD MCCRAY DO Ot Z12.31 ENCNTR SCREEN MAMMOGRAM FOR MALIGNANT NE 08/04/2016 LOYD MCCRAY DO Ot Z12.31 ENCNTR SCREEN MAMMOGRAM FOR MALIGNANT NE 08/05/2016 Ot 786.50 CHEST PAIN NOS 08/05/2016 Ot V58.69 OTH MED,LT, CURRENT USE 08/05/2016 Ot V76.12 OTH SCREEN MAMMO-MALIGN NEOPLASM OF [place] 08/05/2016 MEHNAZ MCCRAY TACTICAL/MOBILE WATCH OFFICER Ot V76.12 OTH SCREEN MAMMO-MALIGN NEOPLASM OF [place] 08/05/2016 MEHNAZ DELAROSA BLADDER BLOWER Ot 793.80 UNSPEC ABNORMAL MAMMOGRAM 08/05/2016 SANTANA PINTO, PETAR Mckee Ot 786.2 COUGH 08/05/2016 MEHNAZ MCCRAY TACTICAL/MOBILE WATCH OFFICER Ot 793.80 UNSPEC ABNORMAL MAMMOGRAM 08/05/2016 MEHNAZ MCCRAY TACTICAL/MOBILE WATCH OFFICER Ot V67.9 FOLLOW-UP EXAM NOS 08/05/2016 MEHNAZ MCCRAY TACTICAL/MOBILE WATCH OFFICER Ot 251.2 HYPOGLYCEMIA NOS 08/05/2016 MEHNAZ MCCRAY TACTICAL/MOBILE WATCH OFFICER Ot 401.9 HYPERTENSION NOS 08/05/2016 ALLY PINTO, MEGAN Reynolds Ot 724.5 BACKACHE NOS 08/05/2016 LOYD MCCRAY DO Ot 793.80 UNSPEC ABNORMAL MAMMOGRAM 08/05/2016 MEHNAZ MCCRAY L TACTICAL/MOBILE WATCH OFFICER Ot 401.9 HYPERTENSION NOS 08/05/2016 MEHNAZ MCCRAY TACTICAL/MOBILE WATCH OFFICER Ot V72.83 EXAM PRE-OPERATIVE NEC 08/05/2016 MEHNAZ MCCRAY TACTICAL/MOBILE WATCH OFFICER Ot V74.8 SCREEN-BACTERIAL DIS NEC 08/05/2016 EARL PINTO, ALYSE Ot 738.4 ACQ SPONDYLOLISTHESIS 08/05/2016 EARL PINTO, ALYSE Ot V45.4 ARTHRODESIS STATUS 08/05/2016 EARL PINTO, ALYSE Ot 738.4 ACQ SPONDYLOLISTHESIS 08/05/2016 EARL PINTO, ALYSE Ot V45.4 ARTHRODESIS STATUS 08/05/2016 EARL PINTO, ALYSE Ot V67.09 SURGERY FOLLOW-UP, OTHER SURGERY 08/05/2016 MEHNAZ MCCRAY TACTICAL/MOBILE WATCH OFFICER Ot 611.71 MASTODYNIA 08/05/2016 MEHNAZ MCCRAY TACTICAL/MOBILE WATCH OFFICER Ot 756.12 SPONDYLOLISTHESIS 08/05/2016 MEHNAZ MCCRAY TACTICAL/MOBILE WATCH OFFICER Ot V45.4 ARTHRODESIS STATUS 08/05/2016 MEHNAZ MCCRAY TACTICAL/MOBILE WATCH OFFICER Ot V67.09 SURGERY FOLLOW-UP, OTHER SURGERY 08/05/2016 LOYD MCCRAY DO Ot Z00.00 ENCNTR FOR GENERAL ADULT MEDICAL EXAM W/ 08/05/2016 EARL PINTO, ALYSE Ot Z09 ENCNTR FOR F/U EXAM AFT TRTMT FOR COND O 08/05/2016 EARL PINTO, ALYSE Ot Z98.1 ARTHRODESIS STATUS 08/05/2016 EARL PINTO, ALYSE Ot M43.16 SPONDYLOLISTHESIS, LUMBAR REGION 08/05/2016 EARL PINTO, ALYSE Ot M47.896 OTHER SPONDYLOSIS, LUMBAR REGION 08/05/2016 EARL PINTO, ALYSE Ot M53.2X7 SPINAL INSTABILITIES, LUMBOSACRAL REGION 08/05/2016 EARL PINTO, ALYSE Ot M54.10 RADICULOPATHY, SITE UNSPECIFIED 08/05/2016 EARL PINTO, ALYSE Ot Z09 ENCNTR FOR F/U EXAM AFT TRTMT FOR COND O 08/05/2016 EARL PINTO, ALYSE Ot Z98.1 ARTHRODESIS STATUS 08/05/2016 LOYD MCCRAY DO Ot Z12.31 ENCNTR SCREEN MAMMOGRAM FOR MALIGNANT NE 08/06/2016 LOYD MCCRAY DO Ot Z12.31 ENCNTR SCREEN MAMMOGRAM FOR MALIGNANT NE 08/11/2016 EARL PINTO, ALYSE Ot M43.10 SPONDYLOLISTHESIS, SITE UNSPECIFIED 08/11/2016 EARL PINTO, ALYSE Ot M47.896 OTHER SPONDYLOSIS, LUMBAR REGION 08/11/2016 EARL PINTO, ALYSE Ot M54.5 LOW BACK PAIN 08/11/2016 EARL PINTO, ALYSE Ot Z09 ENCNTR FOR F/U EXAM AFT TRTMT FOR COND O 08/11/2016 EARL PINTO, ALYSE Ot Z98.1 ARTHRODESIS STATUS 08/21/2016 LOYD MCCRAY DO Ot Z12.31 ENCNTR SCREEN MAMMOGRAM FOR MALIGNANT NE 08/26/2016 EARL PINTO, ALYSE Ot M43.10 SPONDYLOLISTHESIS, SITE UNSPECIFIED 08/26/2016 EARL PINTO, ALYSE Ot M47.896 OTHER SPONDYLOSIS, LUMBAR REGION 08/26/2016 EARL PINTO, ALYSE Ot M54.5 LOW BACK PAIN 08/26/2016 EARL PINTO, ALYSE Ot Z09 ENCNTR FOR F/U EXAM AFT TRTMT FOR COND O 08/26/2016 EARL PINTO, ALYSE Ot Z98.1 ARTHRODESIS STATUS 10/15/2016 TRIANA DPM, ODETTE P Ot G57.82 OTHER SPECIFIED MONONEUROPATHIES OF LEFT 10/15/2016 TRIANA DPM, ODETTE P Ot Z01.818 ENCOUNTER FOR OTHER PREPROCEDURAL EXAMIN 10/15/2016 TRIANA DPM, ODETTE P Ot Z11.2 ENCOUNTER FOR SCREENING FOR OTHER BACTER 10/16/2016 TRIANA DPM, ODETTE P Ot G57.82 OTHER SPECIFIED MONONEUROPATHIES OF LEFT 10/16/2016 TRIANA DPM, ODETTE P Ot Z01.818 ENCOUNTER FOR OTHER PREPROCEDURAL EXAMIN 10/16/2016 TRIANA DPM, ODETTE P Ot Z11.2 ENCOUNTER FOR SCREENING FOR OTHER BACTER 10/23/2016 TRIANA DPM, ODETTE P Ot G57.62 LESION OF PLANTAR NERVE, LEFT LOWER LIMB 10/23/2016 TRIANA DPM, ODETTE P Ot R73.03 PREDIABETES 10/26/2016 TRIANA DPM, ODETTE P Ot G57.62 LESION OF PLANTAR NERVE, LEFT LOWER LIMB 10/26/2016 TRIANA DPM, ODETTE P Ot R73.03 PREDIABETES 10/29/2016 TRIANA DPM, ODETTE P Ot G57.62 LESION OF PLANTAR NERVE, LEFT LOWER LIMB 10/29/2016 TRIANA DPM, ODETTE P Ot R73.03 PREDIABETES 03/27/2017 LORENA HSU BLADDER BLOWER Ot R30.0 DYSURIA 03/30/2017 LORENA HSU BLADDER BLOWER Ot R30.0 DYSURIA 06/25/2017 Ot V76.12 OTH SCREEN MAMMO-MALIGN NEOPLASM OF [place] 06/25/2017 MEHNAZ MCCRAY TACTICAL/MOBILE WATCH OFFICER Ot V76.12 OTH SCREEN MAMMO-MALIGN NEOPLASM OF [place] 06/25/2017 MEHNAZ DELAROSA BLADDER BLOWER Ot 793.80 UNSPEC ABNORMAL MAMMOGRAM 06/25/2017 SANTANA PINTO, PETAR R Ot 786.2 COUGH 06/25/2017 MEHNAZ MCCRAY TACTICAL/MOBILE WATCH OFFICER Ot 793.80 UNSPEC ABNORMAL MAMMOGRAM 06/25/2017 MEHNAZ MCCRAY TACTICAL/MOBILE WATCH OFFICER Ot V67.9 FOLLOW-UP EXAM NOS 06/25/2017 MEHNAZ MCCRAY TACTICAL/MOBILE WATCH OFFICER Ot 251.2 HYPOGLYCEMIA NOS 06/25/2017 MEHNAZ MCCRAY TACTICAL/MOBILE WATCH OFFICER Ot 401.9 HYPERTENSION NOS 06/25/2017 ALLY PINTO, MEGAN Reynolds Ot 724.5 BACKACHE NOS 06/25/2017 LOYD MCCRAY DO Ot 793.80 UNSPEC ABNORMAL MAMMOGRAM 06/25/2017 MEHNAZ MCCRAY TACTICAL/MOBILE WATCH OFFICER Ot 401.9 HYPERTENSION NOS 06/25/2017 MEHNAZ MCCRAY TACTICAL/MOBILE WATCH OFFICER Ot V72.83 EXAM PRE-OPERATIVE NEC 06/25/2017 MEHNAZ MCCRAY TACTICAL/MOBILE WATCH OFFICER Ot V74.8 SCREEN-BACTERIAL DIS NEC 06/25/2017 EARL PINTO, ALYSE Ot 738.4 ACQ SPONDYLOLISTHESIS 06/25/2017 EARL PINTO, ALYSE Ot V45.4 ARTHRODESIS STATUS 06/25/2017 EARL PINTO, ALYSE Ot 738.4 ACQ SPONDYLOLISTHESIS 06/25/2017 EARL PINTO, ALYSE Ot V45.4 ARTHRODESIS STATUS 06/25/2017 EARL PINTO, ALYSE Ot V67.09 SURGERY FOLLOW-UP, OTHER SURGERY 06/25/2017 MEHNAZ MCCRAY TACTICAL/MOBILE WATCH OFFICER Ot 611.71 MASTODYNIA 06/25/2017 MEHNAZ MCCRAY TACTICAL/MOBILE WATCH OFFICER Ot 756.12 SPONDYLOLISTHESIS 06/25/2017 MEHNAZ MCCRAY TACTICAL/MOBILE WATCH OFFICER Ot V45.4 ARTHRODESIS STATUS 06/25/2017 MEHNAZ MCCRAY TACTICAL/MOBILE WATCH OFFICER Ot V67.09 SURGERY FOLLOW-UP, OTHER SURGERY 06/25/2017 LOYD MCCRAY DO Ot Z00.00 ENCNTR FOR GENERAL ADULT MEDICAL EXAM W/ 06/25/2017 EARL PINTO, ALYSE Ot Z09 ENCNTR FOR F/U EXAM AFT TRTMT FOR COND O 06/25/2017 EARL PINTO, ALYSE Ot Z98.1 ARTHRODESIS STATUS 06/25/2017 EARL PINTO, ALYSE Ot M43.16 SPONDYLOLISTHESIS, LUMBAR REGION 06/25/2017 EARL PINTO, ALYSE Ot M47.896 OTHER SPONDYLOSIS, LUMBAR REGION 06/25/2017 EARL PINTO, ALYSE Ot M53.2X7 SPINAL INSTABILITIES, LUMBOSACRAL REGION 06/25/2017 EARL PINTO, ALYSE Ot M54.10 RADICULOPATHY, SITE UNSPECIFIED 06/25/2017 EARL PINTO, ALYSE Ot Z09 ENCNTR FOR F/U EXAM AFT TRTMT FOR COND O 06/25/2017 EARL PINTO, ALYSE Ot Z98.1 ARTHRODESIS STATUS 06/25/2017 LOYD MCCRAY DO Ot Z12.31 ENCNTR SCREEN MAMMOGRAM FOR MALIGNANT NE 06/25/2017 EARL PINTO, ALYSE Ot M43.10 SPONDYLOLISTHESIS, SITE UNSPECIFIED 06/25/2017 EARL PINTO, ALYSE Ot M47.896 OTHER SPONDYLOSIS, LUMBAR REGION 06/25/2017 EARL PINTO, ALYSE Ot M54.5 LOW BACK PAIN 06/25/2017 EARL PINTO, ALYSE Ot Z09 ENCNTR FOR F/U EXAM AFT TRTMT FOR COND O 06/25/2017 EARL PINTO, ALYSE Ot Z98.1 ARTHRODESIS STATUS 06/25/2017 LORENA HSU BLADDER BLOWER Ot R30.0 DYSURIA 07/22/2017 LORENA HSU R BLADDER BLOWER Ot R30.0 DYSURIA 09/22/2017 LORENA HSU R BLADDER BLOWER Ot R30.0 DYSURIA 10/21/2017 MEHNAZ MCCRAY TACTICAL/MOBILE WATCH OFFICER Ot V76.12 OTH SCREEN MAMMO-MALIGN NEOPLASM OF [place] 10/21/2017 MEHNAZ DELAROSA BLADDER BLOWER Ot 793.80 UNSPEC ABNORMAL MAMMOGRAM 10/21/2017 SANTANA PINTO, PETAR Mckee Ot 786.2 COUGH 10/21/2017 MEHNAZ MCCRAY L TACTICAL/MOBILE WATCH OFFICER Ot 793.80 UNSPEC ABNORMAL MAMMOGRAM 10/21/2017 MEHNAZ MCCRAY TACTICAL/MOBILE WATCH OFFICER Ot V67.9 FOLLOW-UP EXAM NOS 10/21/2017 MEHNAZ MCCRAY TACTICAL/MOBILE WATCH OFFICER Ot 251.2 HYPOGLYCEMIA NOS 10/21/2017 MEHNAZ MCCRAY L TACTICAL/MOBILE WATCH OFFICER Ot 401.9 HYPERTENSION NOS 10/21/2017 ALLY PINTO, MEGAN Reynolds Ot 724.5 BACKACHE NOS 10/21/2017 LOYD MCCRAY DO Ot 793.80 UNSPEC ABNORMAL MAMMOGRAM 10/21/2017 MEHNAZ MCCRAY L TACTICAL/MOBILE WATCH OFFICER Ot 401.9 HYPERTENSION NOS 10/21/2017 MEHNAZ MCCRAY L TACTICAL/MOBILE WATCH OFFICER Ot V72.83 EXAM PRE-OPERATIVE NEC 10/21/2017 MEHNAZ MCCRAY TACTICAL/MOBILE WATCH OFFICER Ot V74.8 SCREEN-BACTERIAL DIS NEC 10/21/2017 EARL PINTO, ALYSE Ot 738.4 ACQ SPONDYLOLISTHESIS 10/21/2017 EARL PINTO, ALYSE Ot V45.4 ARTHRODESIS STATUS 10/21/2017 ALYSE ELLIOTT MD Ot 738.4 ACQ SPONDYLOLISTHESIS 10/21/2017 EARL PINTO, ALYSE Ot V45.4 ARTHRODESIS STATUS 10/21/2017 ALYSE ELLIOTT MD Ot V67.09 SURGERY FOLLOW-UP, OTHER SURGERY 10/21/2017 MEHNAZ MCCRAY TACTICAL/MOBILE WATCH OFFICER Ot 611.71 MASTODYNIA 10/21/2017 MEHNAZ MCCRAY TACTICAL/MOBILE WATCH OFFICER Ot 756.12 SPONDYLOLISTHESIS 10/21/2017 MEHNAZ MCCRAY TACTICAL/MOBILE WATCH OFFICER Ot V45.4 ARTHRODESIS STATUS 10/21/2017 MEHNAZ MCCRAY TACTICAL/MOBILE WATCH OFFICER Ot V67.09 SURGERY FOLLOW-UP, OTHER SURGERY 10/21/2017 LOYD MCCRAY DO Ot Z00.00 ENCNTR FOR GENERAL ADULT MEDICAL EXAM W/ 10/21/2017 EARL PINTO, ALYSE Ot Z09 ENCNTR FOR F/U EXAM AFT TRTMT FOR COND O 10/21/2017 ALYSE ELLIOTT MD Ot Z98.1 ARTHRODESIS STATUS 10/21/2017 ALYSE ELLIOTT MD Ot M43.16 SPONDYLOLISTHESIS, LUMBAR REGION 10/21/2017 EARL PINTO, ALYSE Ot M47.896 OTHER SPONDYLOSIS, LUMBAR REGION 10/21/2017 ALYSE ELLIOTT MD Ot M53.2X7 SPINAL INSTABILITIES, LUMBOSACRAL REGION 10/21/2017 ALYSE ELLIOTT MD Ot M54.10 RADICULOPATHY, SITE UNSPECIFIED 10/21/2017 ALYSE ELLIOTT MD Ot Z09 ENCNTR FOR F/U EXAM AFT TRTMT FOR COND O 10/21/2017 ALYSE ELLIOTT MD Ot Z98.1 ARTHRODESIS STATUS 10/21/2017 LOYD MCCRAY DO Ot Z12.31 ENCNTR SCREEN MAMMOGRAM FOR MALIGNANT NE 10/21/2017 ALYSE ELLIOTT MD, Ot M43.10 SPONDYLOLISTHESIS, SITE UNSPECIFIED 10/21/2017 EARL PINTO, ALYSE Ot M47.896 OTHER SPONDYLOSIS, LUMBAR REGION 10/21/2017 EARL PINTO, ALYSE Ot M54.5 LOW BACK PAIN 10/21/2017 EARL PINTO, ALYSE Ot Z09 ENCNTR FOR F/U EXAM AFT TRTMT FOR COND O 10/21/2017 EARL PINTO, ALYSE Ot Z98.1 ARTHRODESIS STATUS 10/21/2017 LORENA HSU BLADDER BLOWER Ot R30.0 DYSURIA 11/04/2017 LOYD MCCRAY DO Ot Z12.31 ENCNTR SCREEN MAMMOGRAM FOR MALIGNANT NE 11/08/2017 MEHNAZ MCCRAY TACTICAL/MOBILE WATCH OFFICER Ot V76.12 OTH SCREEN MAMMO-MALIGN NEOPLASM OF [place]FF[place] 11/08/2017 MEHNAZ DELAROSA BLADDER BLOWER Ot 793.80 UNSPEC ABNORMAL MAMMOGRAM 11/08/2017 SANTANA PINTO, PETAR Mckee Ot 786.2 COUGH 11/08/2017 MEHNAZ MCCRAY TACTICAL/MOBILE WATCH OFFICER Ot 793.80 UNSPEC ABNORMAL MAMMOGRAM 11/08/2017 MEHNAZ MCCRAY TACTICAL/MOBILE WATCH OFFICER Ot V67.9 FOLLOW-UP EXAM NOS 11/08/2017 MEHNAZ MCCRAY TACTICAL/MOBILE WATCH OFFICER Ot 251.2 HYPOGLYCEMIA NOS 11/08/2017 MARY MCCRAYRICIA L TACTICAL/MOBILE WATCH OFFICER Ot 401.9 HYPERTENSION NOS 11/08/2017 ALLY PINTO, MEGAN Reynolds Ot 724.5 BACKACHE NOS 11/08/2017 LOYD MCCRAY DO Ot 793.80 UNSPEC ABNORMAL MAMMOGRAM 11/08/2017 MEHNAZ MCCRAY TACTICAL/MOBILE WATCH OFFICER Ot 401.9 HYPERTENSION NOS 11/08/2017 MEHNAZ MCCRAY TACTICAL/MOBILE WATCH OFFICER Ot V72.83 EXAM PRE-OPERATIVE NEC 11/08/2017 MEHNAZ MCCRAY TACTICAL/MOBILE WATCH OFFICER Ot V74.8 SCREEN-BACTERIAL DIS NEC 11/08/2017 EARL PINTO, ALYSE Ot 738.4 ACQ SPONDYLOLISTHESIS 11/08/2017 EARL PINTO, ALYSE Ot V45.4 ARTHRODESIS STATUS 11/08/2017 EARL PINTO, ALYSE Ot 738.4 ACQ SPONDYLOLISTHESIS 11/08/2017 EARL PINTO, ALYSE Ot V45.4 ARTHRODESIS STATUS 11/08/2017 ALYSE ELLIOTT MD Ot V67.09 SURGERY FOLLOW-UP, OTHER SURGERY 11/08/2017 MEHNAZ MCCRAY TACTICAL/MOBILE WATCH OFFICER Ot 611.71 MASTODYNIA 11/08/2017 MEHNAZ MCCRAY TACTICAL/MOBILE WATCH OFFICER Ot 756.12 SPONDYLOLISTHESIS 11/08/2017 MEHNAZ MCCRAY TACTICAL/MOBILE WATCH OFFICER Ot V45.4 ARTHRODESIS STATUS 11/08/2017 MEHNAZ MCCRAY TACTICAL/MOBILE WATCH OFFICER Ot V67.09 SURGERY FOLLOW-UP, OTHER SURGERY 11/08/2017 LOYD MCCRAY DO Ot Z00.00 ENCNTR FOR GENERAL ADULT MEDICAL EXAM W/ 11/08/2017 EARL PINTO, ALYSE Ot Z09 ENCNTR FOR F/U EXAM AFT TRTMT FOR COND O 11/08/2017 ALYSE ELLIOTT MD Ot Z98.1 ARTHRODESIS STATUS 11/08/2017 ALYSE ELLIOTT MD Ot M43.16 SPONDYLOLISTHESIS, LUMBAR REGION 11/08/2017 EARL PINTO, ALYSE Ot M47.896 OTHER SPONDYLOSIS, LUMBAR REGION 11/08/2017 EARL PINTO, ALYSE Ot M53.2X7 SPINAL INSTABILITIES, LUMBOSACRAL REGION 11/08/2017 EARL PINTO, ALYSE Ot M54.10 RADICULOPATHY, SITE UNSPECIFIED 11/08/2017 ALYSE ELLIOTT MD Ot Z09 ENCNTR FOR F/U EXAM AFT TRTMT FOR COND O 11/08/2017 ALYSE ELLIOTT MD Ot Z98.1 ARTHRODESIS STATUS 11/08/2017 LOYD MCCRAY DO Ot Z12.31 ENCNTR SCREEN MAMMOGRAM FOR MALIGNANT NE 11/08/2017 EARL PINTO, ALYSE Ot M43.10 SPONDYLOLISTHESIS, SITE UNSPECIFIED 11/08/2017 EARL PINTO, ALYSE Ot M47.896 OTHER SPONDYLOSIS, LUMBAR REGION 11/08/2017 EARL PINTO, ALYSE Ot M54.5 LOW BACK PAIN 11/08/2017 ALYSE ELLIOTT MD Ot Z09 ENCNTR FOR F/U EXAM AFT TRTMT FOR COND O 11/08/2017 EARL PINTO, ALYSE Ot Z98.1 ARTHRODESIS STATUS 11/08/2017 LORENA HSU APRN Ot R30.0 DYSURIA 11/08/2017 LOYD MCCRAY DO Ot Z12.31 ENCNTR SCREEN MAMMOGRAM FOR MALIGNANT NE 11/09/2017 MEHNAZ MCCRAY TACTICAL/MOBILE WATCH OFFICER Ot N63.10 UNSPECIFIED LUMP IN THE RIGHT BREAST, UN 11/17/2017 MENHAZ MCCRAY TACTICAL/MOBILE WATCH OFFICER Ot V76.12 OTH SCREEN MAMMO-MALIGN NEOPLASM OF [place]FF[place] 11/17/2017 MARY DELAROSADARIA Brizuela BLADDER BLOWER Ot 793.80 UNSPEC ABNORMAL MAMMOGRAM 11/17/2017 SANTANA PINTO, PETAR R Ot 786.2 COUGH 11/17/2017 MEHNAZ MCCRAY TACTICAL/MOBILE WATCH OFFICER Ot 793.80 UNSPEC ABNORMAL MAMMOGRAM 11/17/2017 MEHNAZ MCCRAY TACTICAL/MOBILE WATCH OFFICER Ot V67.9 FOLLOW-UP EXAM NOS 11/17/2017 MEHNAZ MCCRAY TACTICAL/MOBILE WATCH OFFICER Ot 251.2 HYPOGLYCEMIA NOS 11/17/2017 MEHNAZ MCCRAY TACTICAL/MOBILE WATCH OFFICER Ot 401.9 HYPERTENSION NOS 11/17/2017 ALLY PINTO, MEGAN Reynolds Ot 724.5 BACKACHE NOS 11/17/2017 LOYD MCCRAY DO Ot 793.80 UNSPEC ABNORMAL MAMMOGRAM 11/17/2017 MEHNAZ MCCRAY TACTICAL/MOBILE WATCH OFFICER Ot 401.9 HYPERTENSION NOS 11/17/2017 MEHNAZ MCCRAY TACTICAL/MOBILE WATCH OFFICER Ot V72.83 EXAM PRE-OPERATIVE NEC 11/17/2017 MEHNAZ MCCRAY TACTICAL/MOBILE WATCH OFFICER Ot V74.8 SCREEN-BACTERIAL DIS NEC 11/17/2017 EARL PINTO, ALYSE Ot 738.4 ACQ SPONDYLOLISTHESIS 11/17/2017 EARL PINTO, ALYSE Ot V45.4 ARTHRODESIS STATUS 11/17/2017 EARL PINTO, ALYSE Ot 738.4 ACQ SPONDYLOLISTHESIS 11/17/2017 EARL PINTO, ALYSE Ot V45.4 ARTHRODESIS STATUS 11/17/2017 EARL PINTO, ALYSE Ot V67.09 SURGERY FOLLOW-UP, OTHER SURGERY 11/17/2017 MEHNAZ MCCRAY TACTICAL/MOBILE WATCH OFFICER Ot 611.71 MASTODYNIA 11/17/2017 MEHNAZ MCCRAY TACTICAL/MOBILE WATCH OFFICER Ot 756.12 SPONDYLOLISTHESIS 11/17/2017 MEHNAZ MCCRAY TACTICAL/MOBILE WATCH OFFICER Ot V45.4 ARTHRODESIS STATUS 11/17/2017 MEHNAZ MCCRAYP Ot V67.09 SURGERY FOLLOW-UP, OTHER SURGERY 11/17/2017 LOYD MCCRAY DO Ot Z00.00 ENCNTR FOR GENERAL ADULT MEDICAL EXAM W/ 11/17/2017 EARL PINTO, ALYSE Ot Z09 ENCNTR FOR F/U EXAM AFT TRTMT FOR COND O 11/17/2017 EARL PINTO, ALYSE Ot Z98.1 ARTHRODESIS STATUS 11/17/2017 EARL PINTO, ALYSE Ot M43.16 SPONDYLOLISTHESIS, LUMBAR REGION 11/17/2017 EARL PINTO, ALYSE Ot M47.896 OTHER SPONDYLOSIS, LUMBAR REGION 11/17/2017 EARL PINTO, ALYSE Ot M53.2X7 SPINAL INSTABILITIES, LUMBOSACRAL REGION 11/17/2017 EARL PINTO, ALYSE Ot M54.10 RADICULOPATHY, SITE UNSPECIFIED 11/17/2017 EARL PINTO, ALYSE Ot Z09 ENCNTR FOR F/U EXAM AFT TRTMT FOR COND O 11/17/2017 EARL PINTO, ALYSE Ot Z98.1 ARTHRODESIS STATUS 11/17/2017 LOYD MCCRAY DO Ot Z12.31 ENCNTR SCREEN MAMMOGRAM FOR MALIGNANT NE 11/17/2017 EARL PINTO, ALYSE Ot M43.10 SPONDYLOLISTHESIS, SITE UNSPECIFIED 11/17/2017 EARL PINTO, ALYSE Ot M47.896 OTHER SPONDYLOSIS, LUMBAR REGION 11/17/2017 EARL PINTO, ALYSE Ot M54.5 LOW BACK PAIN 11/17/2017 ALYSE ELLIOTT MD Ot Z09 ENCNTR FOR F/U EXAM AFT TRTMT FOR COND O 11/17/2017 ALYSE ELLIOTT MD Ot Z98.1 ARTHRODESIS STATUS 11/17/2017 LORENA HSU APRN Ot R30.0 DYSURIA 11/17/2017 LOYD MCCRAY DO Ot Z12.31 ENCNTR SCREEN MAMMOGRAM FOR MALIGNANT NE 11/17/2017 MEHNAZ MCCRAY TACTICAL/MOBILE WATCH OFFICER Ot N63.10 UNSPECIFIED LUMP IN THE RIGHT BREAST, UN 11/25/2017 MEHNAZ MCCRAY TACTICAL/MOBILE WATCH OFFICER Ot N63.10 UNSPECIFIED LUMP IN THE RIGHT BREAST, UN 01/14/2018 SHADI, LORENA R BLADDER BLOWER Ot R30.0 DYSURIA 01/14/2018 LORENA HSU R BLADDER BLOWER Ot R30.0 DYSURIA 01/14/2018 LORENA HSU R BLADDER BLOWER Ot R30.0 DYSURIA 01/27/2018 LORENA HSU R BLADDER BLOWER Ot R30.0 DYSURIA 01/31/2018 MEHNAZ MCCRAY TACTICAL/MOBILE WATCH OFFICER Ot E04.2 NONTOXIC MULTINODULAR GOITER 02/10/2018 MEHNAZ MCCRAY TACTICAL/MOBILE WATCH OFFICER Ot E04.2 NONTOXIC MULTINODULAR GOITER 03/30/2018 MEHNAZ MCCRAY TACTICAL/MOBILE WATCH OFFICER Ot V76.12 OTH SCREEN MAMMO-MALIGN NEOPLASM OF [place] 03/30/2018 MEHNAZ DELAROSA BLADDER BLOWER Ot 793.80 UNSPEC ABNORMAL MAMMOGRAM 03/30/2018 SANTANA PINTO, PETAR Mckee Ot 786.2 COUGH 03/30/2018 MEHNAZ MCCRAY TACTICAL/MOBILE WATCH OFFICER Ot 793.80 UNSPEC ABNORMAL MAMMOGRAM 03/30/2018 MEHNAZ MCCRAY TACTICAL/MOBILE WATCH OFFICER Ot V67.9 FOLLOW-UP EXAM NOS 03/30/2018 MEHNAZ MCCRAY TACTICAL/MOBILE WATCH OFFICER Ot 251.2 HYPOGLYCEMIA NOS 03/30/2018 MEHNAZ MCCRAY TACTICAL/MOBILE WATCH OFFICER Ot 401.9 HYPERTENSION NOS 03/30/2018 ALLY PINTO, MEGAN Reynolds Ot 724.5 BACKACHE NOS 03/30/2018 LOYD MCCRAY DO Ot 793.80 UNSPEC ABNORMAL MAMMOGRAM 03/30/2018 MEHNAZ MCCRAY TACTICAL/MOBILE WATCH OFFICER Ot 401.9 HYPERTENSION NOS 03/30/2018 MEHNAZ MCCRAY TACTICAL/MOBILE WATCH OFFICER Ot V72.83 EXAM PRE-OPERATIVE NEC 03/30/2018 MEHNAZ MCCRAY TACTICAL/MOBILE WATCH OFFICER Ot V74.8 SCREEN-BACTERIAL DIS NEC 03/30/2018 EARL PINTO, ALYSE Ot 738.4 ACQ SPONDYLOLISTHESIS 03/30/2018 EARL PINTO, ALYSE Ot V45.4 ARTHRODESIS STATUS 03/30/2018 EARL PINTO, ALYSE Ot 738.4 ACQ SPONDYLOLISTHESIS 03/30/2018 EARL PINTO, ALYSE Ot V45.4 ARTHRODESIS STATUS 03/30/2018 EARL PINTO, ALYSE Ot V67.09 SURGERY FOLLOW-UP, OTHER SURGERY 03/30/2018 SHAZIAMEHNAZ TACTICAL/MOBILE WATCH OFFICER Ot 611.71 MASTODYNIA 03/30/2018 CHRIS MCCRAYBRIANNA Latif TACTICAL/MOBILE WATCH OFFICER Ot 756.12 SPONDYLOLISTHESIS 03/30/2018 SHAZIA MEHNAZ L TACTICAL/MOBILE WATCH OFFICER Ot V45.4 ARTHRODESIS STATUS 03/30/2018 CHRIS MCCRAYBRIANNA Latif TACTICAL/MOBILE WATCH OFFICER Ot V67.09 SURGERY FOLLOW-UP, OTHER SURGERY 03/30/2018 LOYD MCCRAY DO Ot Z00.00 ENCNTR FOR GENERAL ADULT MEDICAL EXAM W/ 03/30/2018 EARL PINTO, ALYSE Ot Z09 ENCNTR FOR F/U EXAM AFT TRTMT FOR COND O 03/30/2018 EARL PINTO, ALYSE Ot Z98.1 ARTHRODESIS STATUS 03/30/2018 EARL PINTO, ALYSE Ot M43.16 SPONDYLOLISTHESIS, LUMBAR REGION 03/30/2018 EARL PINTO, ALYSE Ot M47.896 OTHER SPONDYLOSIS, LUMBAR REGION 03/30/2018 EARL PINTO, ALYSE Ot M53.2X7 SPINAL INSTABILITIES, LUMBOSACRAL REGION 03/30/2018 EARL PINTO, ALYSE Ot M54.10 RADICULOPATHY, SITE UNSPECIFIED 03/30/2018 EARL PINTO, ALYSE Ot Z09 ENCNTR FOR F/U EXAM AFT TRTMT FOR COND O 03/30/2018 ALYSE ELLIOTT MD Ot Z98.1 ARTHRODESIS STATUS 03/30/2018 LOYD MCCRAY DO Ot Z12.31 ENCNTR SCREEN MAMMOGRAM FOR MALIGNANT NE 03/30/2018 EARL PINTO, ALYSE Ot M43.10 SPONDYLOLISTHESIS, SITE UNSPECIFIED 03/30/2018 EARL PINTO, ALYSE Ot M47.896 OTHER SPONDYLOSIS, LUMBAR REGION 03/30/2018 EARL PINTO, ALYSE Ot M54.5 LOW BACK PAIN 03/30/2018 EARL PINTO, ALYSE Ot Z09 ENCNTR FOR F/U EXAM AFT TRTMT FOR COND O 03/30/2018 EARL PINTO, ALYSE Ot Z98.1 ARTHRODESIS STATUS 03/30/2018 LOYD MCCRAY DO Ot Z12.31 ENCNTR SCREEN MAMMOGRAM FOR MALIGNANT NE 03/30/2018 MEHNAZ MCCRAY Ot N63.10 UNSPECIFIED LUMP IN THE RIGHT BREAST, UN 03/30/2018 MEHNAZ MCCRAY Ot E04.2 NONTOXIC MULTINODULAR GOITER 04/01/2018 ALIA COTO MD Ot I10 ESSENTIAL (PRIMARY) HYPERTENSION 04/01/2018 ALIA COTO MD, Ot J30.2 OTHER SEASONAL ALLERGIC RHINITIS 04/01/2018 ALIA COTO MD, Ot K52.9 NONINFECTIVE GASTROENTERITIS AND COLITIS 04/01/2018 ALIA COTO MD, Ot K80.12 CALCULUS OF GB W ACUTE AND CHRONIC ELFEGO 04/01/2018 ALIA CTOO MD, Ot M16.0 BILATERAL PRIMARY OSTEOARTHRITIS OF HIP 04/01/2018 ALIA COTO MD, Ot M19.041 PRIMARY OSTEOARTHRITIS, RIGHT HAND 04/01/2018 ALIA COTO MD, Ot M19.042 PRIMARY OSTEOARTHRITIS, LEFT HAND 04/01/2018 ALIA COTO MD, Ot R73.03 PREDIABETES 04/01/2018 ALIA COTO MD Ot Z79.890 HORMONE REPLACEMENT THERAPY 04/01/2018 ALIA COTO MD, Ot Z82.49 FAMILY HX OF ISCHEM HEART DIS AND OTH DI 04/01/2018 ALIA COTO MD, Ot Z90.710 ACQUIRED ABSENCE OF BOTH CERVIX AND UTER 04/11/2018 LOYD MCCRAY DO Ot N63.10 UNSPECIFIED LUMP IN THE RIGHT BREAST, UN 04/11/2018 LOYD MCCRAY DO Ot N63.10 UNSPECIFIED LUMP IN THE RIGHT BREAST, UN 05/04/2018 ZOILA LOZADA DO Ot E27.8 OTHER SPECIFIED DISORDERS OF ADRENAL GLA 05/18/2018 ZOILA LOZADA DO Ot E27.8 OTHER SPECIFIED DISORDERS OF ADRENAL GLA Procedures Code Description Performed By Performed On [id number] RESECTION OF GALLBLADDER, PERCUTANEOUS E 03/31/2018 Results Test Result Range Methicillin resistant Staphylococcus aureus (MRSA) screening culture - 15:15 Methicillin resistant Staphylococcus aureus (MRSA) screening culture NEG NRG Capillary blood glucose measurement by glucometer (mass/volume) - 10/23/16 06: 47 Capillary blood glucose measurement by glucometer (mass/volume) 97 mg/dL 70-110 Bacterial urine culture - 03/21/17 15:00 Bacterial urine culture [id number] NRG COLONY COUNT >100,000/ML NRG FTX;REPORTABLE SENSITIVITY REPORTED 03/22/17 16:15 NR Bacterial susceptibility panel - 03/21/17 15:00 Gentamicin susceptibility test by minimum inhibitory concentration < = NRG Trimethoprim/sulfamethoxazole susceptibility test by minimum inhibitoryconcentration <= NRG Ampicillin susceptibility test by minimum inhibitory concentration < = NRG Tobramycin susceptibility test by minimum inhibitory concentration < = NRG Cefazolin susceptibility test by minimum inhibitory concentration < = NRG Ceftriaxone susceptibility test by minimum inhibitory concentration <= NRG Ampicillin/sulbactam susceptibility test by minimum inhibitory concentration <= NRG Piperacillin/tazobactam susceptibility test by minimum inhibitory concentration <= NRG Ciprofloxacin susceptibility test by minimum inhibitory concentration <= NRG Meropenem susceptibility test by minimum inhibitory concentration < = NRG Nitrofurantoin susceptibility test by minimum inhibitory concentration <= NRG Aztreonam susceptibility test by minimum inhibitory concentration < = NRG Extended spectrum beta lactamase (ESBL) producing bacteria susceptibility test by minimum inhibitory concentration - NRG Complete blood count (CBC) with automated white blood cell (WBC) differential - 03/30/18 08:15 Blood leukocytes automated count (number/volume) 13.5 10*3/uL 4.3-11.0 Blood erythrocytes automated count (number/volume) 4.89 10*6/uL 4.35-5.85 Venous blood hemoglobin measurement (mass/volume) 15.2 g/dL 11.5-16.0 Blood hematocrit (volume fraction) 42 % 35-52 Automated erythrocyte mean corpuscular volume 86 [foz_us] 80-99 Automated erythrocyte mean corpuscular hemoglobin (mass per erythrocyte) 31 pg 25-34 Automated erythrocyte mean corpuscular hemoglobin concentration measurement ( mass/volume) 36 g/dL 32-36 Automated erythrocyte distribution width ratio 12.9 % 10.0-14.5 Automated blood platelet count (count/volume) 263 10*3/uL 130-400 Automated blood platelet mean volume measurement 11.0 [foz_us] 7.4-10.4 Automated blood neutrophils/100 leukocytes 84 % 42-75 Automated blood lymphocytes/100 leukocytes 11 % 12-44 Blood monocytes/100 leukocytes 4 % 0-12 Automated blood eosinophils/100 leukocytes 1 % 0-10 Automated blood basophils/100 leukocytes 0 % 0-10 Blood neutrophils automated count (number/volume) 11.3 10*3 1.8-7.8 Blood lymphocytes automated count (number/volume) 1.5 10*3 1.0-4.0 Blood monocytes automated count (number/volume) 0.5 10*3 0.0-1.0 Automated eosinophil count 0.1 10*3/uL 0.0-0.3 Automated blood basophil count (count/volume) 0.1 10*3/uL 0.0-0.1 PT panel in platelet poor plasma by coagulation assay - 03/30/18 08:15 Prothrombin time (PT) in platelet poor plasma by coagulation assay 11.9 s 12.2-14.7 INR in platelet poor plasma or blood by coagulation assay 0.9 0.8-1.4 Activated partial thromboplastin time (aPTT) in platelet poor plasma bycoagulation assay - 03/30/18 08:15 Activated partial thromboplastin time (aPTT) in platelet poor plasma bycoagulation assay 24 s 24-35 Comprehensive metabolic panel - 03/30/18 08:15 Serum or plasma sodium measurement (moles/volume) 140 mmol/L 135-145 Serum or plasma potassium measurement (moles/volume) 3.6 mmol/L 3.6-5.0 Serum or plasma chloride measurement (moles/volume) 102 mmol/L 98-107 Carbon dioxide 26 mmol/L 21-32 Serum or plasma anion gap determination (moles/volume) 12 mmol/L 5-14 Serum or plasma urea nitrogen measurement (mass/volume) 17 mg/dL 7-18 Serum or plasma creatinine measurement (mass/volume) 0.75 mg/dL 0.60-1.30 Serum or plasma urea nitrogen/creatinine mass ratio 23 NRG Serum or plasma creatinine measurement with calculation of estimated glomerular filtration rate > NRG Serum or plasma glucose measurement (mass/volume) 126 mg/dL 70-105 Serum or plasma calcium measurement (mass/volume) 9.5 mg/dL 8.5-10.1 Serum or plasma total bilirubin measurement (mass/volume) 0.6 mg/dL 0.1-1.0 Serum or plasma alkaline phosphatase measurement (enzymatic activity/volume) 73 U/L 40-136 Serum or plasma aspartate aminotransferase measurement (enzymatic activity/ volume) 23 U/L 5-34 Serum or plasma alanine aminotransferase measurement (enzymatic activity/volume ) 20 U/L 0-55 Serum or plasma protein measurement (mass/volume) 7.3 g/dL 6.4-8.2 Serum or plasma albumin measurement (mass/volume) 4.3 g/dL 3.2-4.5 Magnesium - 03/30/18 08:15 Magnesium 2.0 mg/dL 1.8-2.4 Serum or plasma troponin i.cardiac measurement (mass/volume) - 03/30/18 08:15 Serum or plasma troponin i.cardiac measurement (mass/volume) < ng/ mL <0.30 Myoglobin, serum - 03/30/18 08:15 Myoglobin, serum 52.0 ng/mL 10.0-92.0 Lipase - 03/30/18 08:15 Lipase 66 U/L 8-78 Complete urinalysis with reflex to culture - 03/30/18 09:35 Urine color determination YELLOW NRG Urine clarity determination CLEAR NRG Urine pH measurement by test strip 7 5-9 Specific gravity of urine by test strip 1.010 1.016- 1.022 Urine protein assay by test strip, semi-quantitative NEGATIVE NEGATIVE Urine glucose detection by automated test strip NEGATIVE NEGATIVE Erythrocytes detection in urine sediment by light microscopy NEGATIVE NEGATIVE Urine ketones detection by automated test strip 2+ NEGATIVE Urine nitrite detection by test strip NEGATIVE NEGATIVE Urine total bilirubin detection by test strip NEGATIVE NEGATIVE Urine urobilinogen measurement by automated test strip (mass/volume) NORMAL NORMAL Urine leukocyte esterase detection by dipstick NEGATIVE NEGATIVE Automated urine sediment erythrocyte count by microscopy (number/high power field) [HPF] NRG Automated urine sediment leukocyte count by microscopy (number/high power field ) NONE NRG Bacteria detection in urine sediment by light microscopy TRACE NRG Squamous epithelial cells detection in urine sediment by light microscopy 2-5 NRG Crystals detection in urine sediment by light microscopy NONE NRG Casts detection in urine sediment by light microscopy NONE NRG Mucus detection in urine sediment by light microscopy SMALL NRG Complete urinalysis with reflex to culture NO NRG Methicillin resistant Staphylococcus aureus (MRSA) screening culture - 15:30 Methicillin resistant Staphylococcus aureus (MRSA) screening culture NEG NRG Lipid 1996 panel - 03/31/18 05:25 Serum or plasma triglyceride measurement (mass/volume) 87 mg/dL <150 Serum or plasma cholesterol measurement (mass/volume) 156 mg/dL < 200 Serum or plasma cholesterol in HDL measurement (mass/volume) 44 mg/ dL 40-60 Cholesterol in LDL [mass/volume] in serum or plasma by direct assay 95 mg/dL 1-129 Serum or plasma cholesterol in VLDL measurement (mass/volume) 17 mg/ dL 5-40 24 hour urine catecholamines measurement (mass/volume) - 05/02/18 07:18 24 hour urine specimen volume measurement 1800 % NRG Urine collection time duration 24 % NRG Urine epinephrine measurement (mass/volume) 4 % 1-7 Urine norepinephrine measurement (mass/volume) 41 % 16- 71 24 hour urine dopamine measurement (mass/time) 214 % 77- 324 Timed urine creatinine measurement (mass/volume) 64 % NRG Urine catecholamines interpretation narrative See Note NRG Dopamine/creatinine [mass ratio] in urine 186 ug/g{Cre} 0 -250 24 hour urine norepinephrine/creatinine mass ratio 36 ug/g{Cre} 0-45 Urine catecholamines/creatinine mass ratio 1152 % 500- 1400 24 hour urine epinephrine/creatinine mass ratio 3 ug/g{Cre} 0-20 Dopamine [Mass/volume] in Urine 119 % NRG 24 hour urine cortisol free measurement (mass/volume) - 05/02/18 07:22 Urine creatinine measurement (mass/volume) 65 % NRG 24 hour urine creatinine measurement (mass/time) 1170 % 500-1400 Urine collection time duration 24 % NRG Urine volume measurement 1800 % NRG Urine cortisol free measurement (mass/volume) 7.5 % <= 45.0 24 hour urine free cortisol measurement by radioimmunoassay (mass/time) 4.19 % NRG Urine cortisol/creatinine ratio 6.45 ug/g{Cre} NRG Cortisol [interpretation] in serum or plasma--1 hour post dose corticotropin See Note NRG 24 hour urine metanephrine measurement (mass/volume) - 05/02/18 07:22 [id number] 150 % NRG Urine collection time duration 24 % NRG Metanephrine and normetanephrine [interpretation] in serum or plasma narrative See Note NRG 24 hour urine normetanephrine/creatinine mass ratio 231 ug/g{Cre} 0-400 Urine metanephrine measurement (mass/volume) 36 % 39-143 Urine normetanephrine measurement (mass/volume) 270 % 109 -393 Timed urine creatinine measurement(moles/volume) 1170 % 500-1400 Urine metanephrine/creatinine mass ratio 65 % NRG Encounters ACCT No. Visit Date/Time Discharge Status Pt. Type Provider Facility Loc./Unit Complaint [id number] 05/02/2018 07:18:00 05/02/2018 23:59:59 CLS Outpatient ZOILA LOZADA DO [facility] LABNPT [id number] 04/08/2018 09:08:00 04/08/2018 23:59:59 CLS Outpatient LOYD MCCRAY DO [facility] RAD RIGHT NODULE [id number] 03/30/2018 12:47:00 04/01/2018 08:03:00 DIS Inpatient ALIA COTO MD [facility] 4TH ACUTE CHOLECYSTITIS, CHEST PAIN,N/V/D [id number] 03/18/2018 11:11:00 03/18/2018 23:59:59 CLS Preadmit SUSHILA CORTEZ MD [facility] RAD 1 YR NODULE THYROID FOLLOW UP [id number] 03/15/2018 07:48:00 03/15/2018 23:59:59 CLS Preadmit LOYD MCCRAY DO [facility] RAD RIGHT NODULE [id number] 01/28/2018 07:41:00 01/28/2018 23:59:59 CLS Outpatient MEHNAZ MCCRAY TACTICAL/MOBILE WATCH OFFICER [facility] RAD THYROMEGALY [id number] 11/08/2017 12:58:00 11/08/2017 23:59:59 CLS Outpatient MEHNAZ MCCRAY TACTICAL/MOBILE WATCH OFFICER [facility] RAD R NODULE [id number] 10/22/2017 10:56:00 10/22/2017 23:59:59 CLS Outpatient OLYD MCCRAY DO [facility] RAD SCREENING [id number] 03/21/2017 18:35:00 03/21/2017 23:59:59 CLS Outpatient LORENA HSU APRN [facility] LAB DYSURIA [id number] 10/23/2016 06:07:00 10/23/2016 10:23:00 DIS Outpatient KAMILAH LIMONODETTE Dorota [facility] SDC NEUROMA LEFT THIRD INNERSPACE [id number] 10/15/2016 14:38:00 10/15/2016 15:09:00 DIS Outpatient KAMILAH LIMONODETTE [facility] PREOP NEUROMA LEFT THIRD INNERSPACE [id number] 08/07/2016 10:06:00 08/07/2016 23:59:59 CLS Outpatient ALYSE ELLIOTT MD [facility] RAD M54.5,M43.10 [id number] 07/31/2016 09:42:00 07/31/2016 23:59:59 CLS Outpatient LOYD MCCRAY DO [facility] RAD ROUTINE [id number] 01/03/2016 11:45:00 01/03/2016 23:59:59 CLS Outpatient ALYSE ELLIOTT MD [facility] RAD SPINAL INSTABILITY, PO 3 MONTHS LUMBAR FUSION [id number] 09/02/2015 11:12:00 09/02/2015 23:59:59 CLS Outpatient ALYSE ELLIOTT MD [facility] RAD 2 WEEK OF PAIN [id number] 08/05/2015 12:28:00 08/05/2015 23:59:59 CLS Outpatient LOYD MCCRAY DO [facility] RAD Z00.00 ROUTINE EXAM [id number] 06/10/2015 12:51:00 06/10/2015 15:27:00 DIS Emergency HOPE JEREMY YIN K [facility] ER HEADACHE [id number] 05/01/2015 12:29:00 05/01/2015 23:59:59 CLS Outpatient MEHNAZ MCCRAY [facility] RAD FOLLOW UP [id number] 11/12/2014 12:07:00 11/12/2014 23:59:59 CLS Outpatient ALYSE ELLIOTT MD [facility] RAD SPONDYLOLISTHESIS [id number] 08/03/2014 10:08:00 08/03/2014 23:59:59 CLS Outpatient ALYSE ELLIOTT MD [facility] RAD SPONDYLOLISTHESIS [id number] 07/13/2014 10:24:00 07/13/2014 23:59:59 CLS Outpatient MEHNAZ MCCRAY TACTICAL/MOBILE WATCH OFFICER [facility] RAD PRE OP CLEARANCE [id number] 04/26/2014 12:40:00 04/26/2014 23:59:59 CLS Outpatient SHAZIA YIN LOYD Markham [facility] RAD FOLLOW UP [id number] 03/09/2014 09:22:00 03/09/2014 23:59:59 CLS Outpatient MEGAN CANALES MD [facility] RAD LUMBAR STENOSIS [id number] 12/22/2013 09:12:00 12/22/2013 23:59:59 CLS Outpatient MEHNAZ MCCRAY TACTICAL/MOBILE WATCH OFFICER [facility] LAB REACTIVE HYPOGLYCEMIA WITH HYPERTENSION [id number] 10/10/2013 07:27:00 10/10/2013 23:59:59 CLS Outpatient MEHNAZ MCCRAY TACTICAL/MOBILE WATCH OFFICER [facility] RAD SIX MONTH F/U [id number] 06/21/2013 16:06:00 06/21/2013 23:59:59 CLS Outpatient SANTANA PINTO, PETAR R [facility] RAD PERSISTANT COUGH [id number] 05/05/2013 13:49:00 05/05/2013 23:59:59 CLS Outpatient RIDINGSMEHNAZ BLADDER BLOWER [facility] RAD ABN MAMMO [id number] 04/21/2013 10:18:00 04/21/2013 23:59:59 CLS Outpatient MEHNAZ MCCRAY TACTICAL/MOBILE WATCH OFFICER [facility] RAD SCREENING [id number] 06/03/2018 12:00:00 PEN Preadmit ALIA COTO MD [facility] ENDO SCREENING [id number] 02/12/2012 09:10:00 Document Registration [id number] 08/18/2011 06:36:00 Document Registration [id number] 02/06/2011 10:00:00 Document Registration
[2018-06-03 11:14] VITALS: BP 134/68
[2018-06-03] MEDS ORDERED: NS IV 500 ML 500 ML ONE (11:17)
[2018-06-03] MEDS ORDERED: fentaNYL INJECTION 100 MCG/2 ML AMP ONE ×2 (11:41)
[2018-06-03] MEDS ORDERED: MIDAZOLAM 2 MG/2 ML (VERSED) VIAL ONE ×5 (11:41)
[2018-06-03] MEDS: MIDAZOLAM 2 MG/2 ML (VERSED) VIAL IVP PRN ×5 (11:45→12:05)
[2018-06-03] MEDS: fentaNYL INJECTION 100 MCG/2 ML AMP IVP PRN ×4 (11:46→12:06)
--- NOTE | 2018-06-03 11:46 | Conscious Sedation/ASA ---
Conscious Sedation Pre-Proced Time Reviewed: 11:30 ASA Class: 2 Airway Mallampati Classification: ([place] appropriate class) I. II. III, IV Lungs Heart ASA score ASA 1: a normal healthy patient ASA 2: a patient with a mild systemic disease (mid diabetes, controlled hypertension, obesity ASA 3: a patient with a severe systemic disease that limits activity (angina , COPD, prior Myocardial infarction) ASA 4: a patient with an incapacitating disease that is a constant threat to life (CHF, renal failure) ASA 5: a moribund patient not expected to survive 24 hrs. (ruptured aneurysm) ASA 6: a declared brain patient whose organs are being harvested. For emergent operations, add the letter E after the classification Grade 2 Sedation Plan: Analgesia, Amnesia, Plan communicated to team members, Discussed options with patient/fam, Discussed risks with patient/fam Note The patient is an appropriate candidate to undergo the planned procedure, sedation, and anesthesia. The patient immediately re-assessed prior to indication. ALIA COTO MD Jun 03, 2018 11:46 am
--- NOTE | 2018-06-03 11:47 | Progress Note-Pre Operative ---
Pre-Operative Progress Note H&P Reviewed The H&P was reviewed, patient examined and no changes noted. Date Seen by Provider: Jun 03, 2018 Time Seen by Provider: 11:30 Date H&P Reviewed: Jun 03, 2018 Time H&P Reviewed: 11:30 Pre-Operative Diagnosis: hx colitis ALIA COTO MD Jun 03, 2018 11:47 am
[2018-06-03] MEDS ORDERED: morphine INJ 10 MG/ML 1ML (SYR OR VIAL) IV PRN (12:00)
[2018-06-03] MEDS ORDERED: ACETAMINOPHEN 325 MG TABLET PO PRN (12:00)
[2018-06-03] MEDS ORDERED: ONDANSETRON 4 MG/2 ML (SDV) Z0FRAN IV PRN (12:00)
[2018-06-03] MEDS ORDERED: HYDROcodone/APAP 5 MG/325 MG (LORTAB) TAB PO PRN (12:00)
--- NOTE | 2018-06-03 12:34 | Progress Note-Post Operative ---
Post-Operative Progess Note Surgeon (s)/Instructional Technology Instructor (s) Surgeon ALIA COTO MD Instructional Technology Instructor: none Pre-Operative Diagnosis hx colitis Post-Operative Diagnosis mild chronic stage 1 ext and int hemorrhoids, mild cecal colitis. Procedure & Operative Findings Date of Procedure 06/03/18 Procedure Performed/Findings Colonoscopy with bx. Anesthesia Type CS Estimated Blood Loss Estimated blood loss (mL): minimal Specimens/Packing Specimens Removed cecum ALIA COTO MD Jun 03, 2018 12:34 pm
--- NOTE | 2018-06-03 12:35 | Discharge Inst-Surgical ---
D/C Lap Instructions-CHICA Follow Up PRN Activity as tolerated High Fiber Diet 25g or more per day Avoid Alcohol, Caffeine, Spicy [place] and Acid foods. Drink 64 fluid oz or more of fluids per day. Symptoms to Report: Fever over 101 degree F, Nausea/Vomiting If any problems/questions: Contact your physician or go to Emergency Room ALIA COTO MD Jun 03, 2018 12:35 pm
[2018-06-03 12:45] VITALS: BP 116/64
[2018-06-03 13:15] VITALS: BP 124/76
--- NOTE | 2018-06-03 18:55 | OPERATIVE REPORT ---
DATE OF SERVICE: 06/03/2018 ATTENDING PRIMARY CARE PHYSICIAN: Dr. Edil Farias. PREOPERATIVE DIAGNOSES: History of colitis as well as diarrhea. POSTOPERATIVE DIAGNOSES: Mild chronic stage I external and internal hemorrhoids, mild inflammation around the cecum. PROCEDURE: Colonoscopy with biopsy. SURGEON: Alia Coto MD ANESTHESIA: Conscious sedation. ESTIMATED BLOOD LOSS: Minimal. FINDINGS: Chronic stage I external and internal hemorrhoids. There was a very small amount of inflammation encompassing the cecum. There were no ulcerations, polyps or any neoplasms identified. DISPOSITION: The patient tolerated the procedure well. INDICATIONS: The patient is a 62-year-old female, who presented with abdominal pain in 03/2018. She had a CT scan performed, which did show gallbladder wall thickening as well as multiple stones; however, there was also finding of inflammation of the colon. She had reported episodes of diarrhea as well. She has undergone a laparoscopic cholecystectomy and is following up for the colitis. DESCRIPTION OF PROCEDURE: The patient was brought to the endoscopy suite, laid in the left lateral decubitus position. After adequate IV pain and sedating medications and conscious sedation anesthesia, a digital rectal examination was performed. Chronic stage I external and internal hemorrhoids were identified, which are not actively edematous nor bleeding. Normal sphincter tone was felt and there were no palpable masses. The endoscope was then intubated to the anus and rectum gently insufflated. The endoscope was then advanced to the valves of [place] of the rectum with no polyps or any neoplasms identified. The endoscope was then advanced through the sigmoid colon where no diverticulosis identified. The endoscope was then advanced to the descending, transverse and ascending colon to the cecum. Around the cecum, there was a very mild colitis identified. There were no ulcerations, plaques or cobblestoning. A biopsy was taken with forceps with visualization of good hemostasis. The endoscope was then slowly withdrawn with taking a second look and suctioning of residual air with no additional findings. The patient tolerated the procedure well. We will await the biopsy results; however, this may be some low level colitis and if she is asymptomatic, we will recommend conservative management with high fiber diet, soft stools on a daily basis and to prevent episodes of constipation as well as diarrhea. Job ID: [id number] DocumentID: [id number] Dictated Date: 06/03/2018 12:31:22 Subassembly Assembler Date: 06/03/2018 18:54:35 Dictated By: ALIA COTO MD MTDD
== END 2018-06-03 13:35 | disposition home or self-care (01) ==
LOC: ENDO 10:59
PROVIDERS: ATTEND Surgery
DX: K52.9 Noninfective gastroenteritis and colitis, unspecified (principal); K64.0 First degree hemorrhoids; I10 Essential (primary) hypertension; R73.03 Prediabetes

== ENCOUNTER → 2018-11-04 | Outpatient (CLI) | payer BC ==
[~2018-11-04] MED LIST changes: +METF-397 PO; -METF500T5 PO
--- NOTE | 2018-11-04 18:59 | Diagnostic Imaging Report ---
INDICATION: Six-month followup of right breast density. Correlation is made with prior mammograms from 04/08/2018, 11/08/2017 and 10/22/2017. Bilateral 2-D and 3-D diagnostic mammography was performed with a Computer Aided Detection (CAD) system. FINDINGS: Scattered fibroglandular densities are identified bilaterally. A circumscribed nodule central right breast appear stable consistent with benign etiology. No new mass or malignant appearing microcalcifications are seen. Axillae are unremarkable. IMPRESSION: Stable bilateral mammograms. Tiny nodule in the right breast has been stable for several years and is consistent with benign etiology. Patient may return to routine annual screening mammography. ACR BI-RADS Category 2: Benign findings. Result letter will be mailed to the patient. Note: At least 10% of breast cancer is not imaged by mammography. Dictated by: Dictated on workstation # [id number]
== END ==
LOC: RAD 12:56
PROVIDERS: ATTEND Nurse Practitioner Family
DX: N63.10 Unspecified lump in the right breast, unspecified quadrant (principal)
CPT/HCPCS: 77066

== ENCOUNTER 2019-05-23 14:06 | Outpatient (CLI) | payer BC ==
[~2019-05-23] VITALS: Ht 163.8 cm; Wt 85.3 kg
[2019-05-23 14:10] VITALS: BP 101/56
[2019-05-23] MEDS ORDERED: LACTATED RINGERS 2,000 ML IV ONE (14:14)
[2019-05-23] MEDS ORDERED: ceFAZolin 2 GM/NS 50 ML IVPB IV NR (14:30)
[2019-05-23] MEDS: LACTATED RINGERS 1,000 ML IV SCH ×2 (14:40→16:35)
[2019-05-23] MEDS ORDERED: ACETAMINOPHEN 500 MG TAB (TYLENOL) PO ONE (15:00)
[2019-05-23 15:04] LABS: MEAN PLATELET VOLUME 10.5 FL (7.4-10.4); RED CELL DISTRIBUTION WIDTH 13.3 % (10.0-14.5); WHITE BLOOD COUNT 6.4 10^3/uL (4.3-11.0)
[2019-05-23] MEDS ORDERED: ACETAMINOPHEN 500 MG TAB (TYLENOL) ONE (15:07)
--- NOTE | 2019-05-23 15:10 | NUR ---
C/O HEADACHE ON ADMIT. RATES 7. CONTACTED DR MCCRAY'S OFFICE, ORDER RECEIVED FOR TYLENOL 500 MG, 2 TABS PO X1 DOSE. GIVEN ORDERED.
[2019-05-23 15:30] LABS: ALBUMIN 4.1 GM/DL (3.2-4.5); BILIRUBIN,TOTAL 0.4 MG/DL (0.1-1.0); CALCIUM 9.5 MG/DL (8.5-10.1); CREATININE SERUM 1.42 MG/DL (0.60-1.30); POTASSIUM 3.7 MMOL/L (3.6-5.0)
--- NOTE | 2019-05-23 15:45 | NUR ---
RESTING QUIETLY IN BED. REPORTS HEADACHE ONLY SLIGHTLY BETTER. LAB RESULTS FAXED TO DR MCCRAY'S OFFICE, RECEIPT OF LABS VERIFIED WITH EDWARD SHRESTHA RN.
[2019-05-23] MEDS ORDERED: METF-478 PO (16:47)
--- NOTE | 2019-05-23 17:40 | NUR ---
ORDERED TX COMPLETE, NO EMESIS OR DIARRHEA DURING THIS ADMISSION. REPORTS SHE STILL HAS HEADACHE, RATES 4. UP WITH ASSIST, IV DC'D. ORDER RECEIVED FROM Dorota MCCRAY DNP,LONGTERM FOR C DIFF TESTING. PT UNABLE TO PROVIDE STOOL SAMPLE AT THIS TIME. INSTRUCTIONS AND SUPPLIES PROVIDED, ALONG WITH ORDER FOR TEST, TO PT TO COMPLETE WHEN ABLE OUTPATIENT LAB.
== END 2019-05-23 17:50 | disposition home or self-care (01) ==
LOC: SDC 14:06
PROVIDERS: ATTEND Nurse Practitioner Family
DX: E86.0 Dehydration (principal); N12 Tubulo-interstitial nephritis, not specified as acute or chronic
CPT/HCPCS: 36415; 80053; 85027; 86141; 96360; 96361

== ENCOUNTER 2019-05-24 13:46 | Outpatient (RCR) | payer BC ==
[~2019-05-24 13:46] MED LIST changes: +CYAN-41 PO; -CYAN10006 PO; +METF-478 PO
== END 2019-08-22 | disposition home or self-care (01) ==
LOC: LAB 13:46
PROVIDERS: ATTEND Nurse Practitioner Family
DX: N12 Tubulo-interstitial nephritis, not specified as acute or chronic (principal); E86.0 Dehydration
CPT/HCPCS: 87324; 87449

== ENCOUNTER → 2019-08-11 | Outpatient (CLI) | payer BC ==
[~2019-08-11] MED LIST changes: +CATHETER FLUSH 10 ML SYR IV PRN; +HOLD METFORMIN - RECEIVED CONTRAST 20 ML VIAL IV SCH; +IOHEXOL 350 MG/ML 100 ML (OMNIPAQUE 350) VIAL IV ONE; -MAGN400T6 PO; +MAGN400T8 PO; +METF500T19 PO; -METF500T8 PO; +NS 100 ML (IVPB) BAG IV ONE
[2019-08-11 14:26] LABS: BUN/CREATININE RATIO 21; CREATININE SERUM 0.78 MG/DL (0.60-1.30); GFR ESTIMATED > 60
--- NOTE | 2019-08-11 15:01 | Diagnostic Imaging Report ---
PROCEDURE: US Thyroid. TECHNIQUE: Multiple real-time grayscale images were obtained of the thyroid in various projections. INDICATION: Thyroid nodules. COMPARISON: Correlation is made with prior thyroid ultrasound from 01/28/2018. FINDINGS: The right lobe of the thyroid measures 4.3 x 1.6 x 1.0 cm and the left lobe measures 3.9 x 1.2 x 1.0 cm. Isthmus is 2 mm in thickness. Small bilateral subcentimeter thyroid nodules are again noted and similar to prior exam. Nodule in the right in upper pole is approximately 8 mm x 6 mm and may represent a cyst. Nodule in upper pole of left lobe is approximately 7 mm x 6 mm and suggestive of a cyst. Hypoechoic nodule in mid aspect of left lobe is approximately 8 mm x 5 mm. No dominant thyroid mass is detected. IMPRESSION: Stable bilateral thyroid nodules when compared with examination from 01/28/2018. Dictated by: Dictated on workstation # [id number]
--- NOTE | 2019-08-11 18:04 | Diagnostic Imaging Report ---
PROCEDURE: CT abdomen with and without contrast. TECHNIQUE: Multiple contiguous axial CT images of the abdomen were obtained prior to and after intravenous administration of iodinated contrast. Auto Exposure Controls were utilized during the CT exam to meet ALARA standards for radiation dose reduction. DATE: August 11, 2019. INDICATION: 63-year-old female, adrenal nodule. COMPARISON: CT chest, abdomen and pelvis, March 30, 2018. FINDINGS: There is very mild dependent atelectasis. The heart is not enlarged. There is no identified pericardial effusion. The liver is normal in size and contour. There is a low-attenuation lesion in the left lobe of the liver on axial image 19 measuring 1.5 cm in size with internal attenuation of 2 Hounsfield units on precontrast imaging consistent with a benign hepatic cyst. There is no additionally identified liver lesion. The main, right and left portal veins are patent. The patient is status post cholecystectomy. There is no intrahepatic or extrahepatic bile duct dilation. The main pancreatic duct is not abnormally dilated. Unremarkable appearance of the pancreatic parenchyma. The spleen is normal in size. Unremarkable appearance of the renal parenchyma. The urinary collecting systems are not distended in their visualized segments. There is a 6 mm left adrenal nodule. This is stable in size since March 30, 2018. Internal attenuation measures 96 Hounsfield units. This most likely relates to a benign adrenal adenoma. There are atherosclerotic calcifications. The visualized segments of the intestinal tract are not distended. There is no free intraperitoneal air, drainable fluid collection or free fluid in the abdomen. There are areas of nonspecific anterior subcutaneous stranding within the abdominal wall. There is no focal fluid collection. There are postoperative related changes of the lumbar spine. There are degenerative changes of the spine. There is no identified acute bony abnormality. IMPRESSION: 1. There is a 6 mm left adrenal nodule stable in size since March 30, 2018 with internal attenuation most consistent with an adrenal adenoma. 2. Benign cyst in the left lobe of the liver. Additional CT evaluation of the liver is currently unremarkable. Dictated by: Dictated on workstation # [id number]
== END ==
LOC: RAD 13:53
PROVIDERS: ATTEND Nurse Practitioner Family
DX: E04.2 Nontoxic multinodular goiter (principal); K76.89 Other specified diseases of liver; E27.40 Unspecified adrenocortical insufficiency; E27.8 Other specified disorders of adrenal gland
CPT/HCPCS: 36415; 74170; 76536; 82565; 84520

== ENCOUNTER → 2019-12-07 | Outpatient (CLI) | payer BC ==
[~2019-12-07] MED LIST changes: -CATHETER FLUSH 10 ML SYR IV PRN; -HOLD METFORMIN - RECEIVED CONTRAST 20 ML VIAL IV SCH; -IOHEXOL 350 MG/ML 100 ML (OMNIPAQUE 350) VIAL IV ONE; -NS 100 ML (IVPB) BAG IV ONE
== END ==
LOC: CARD 11:44
PROVIDERS: ATTEND Physician Assistant
DX: I10 Essential (primary) hypertension (principal); E04.1 Nontoxic single thyroid nodule; G47.30 Sleep apnea, unspecified; E66.9 Obesity, unspecified
CPT/HCPCS: 93306

== ENCOUNTER → 2020-04-25 | Outpatient (CLI) | payer BC ==
[~2020-04-25] MED LIST changes: +METF-865 PO; -METF500T19 PO
--- NOTE | 2020-04-25 13:04 | Diagnostic Imaging Report ---
INDICATION: Routine screening. Comparison is made with prior mammogram 11/04/2018 and 10/22/2017. 2-D and 3-D bilateral screening mammography was performed with CAD. Scattered fibroglandular densities are identified bilaterally. The parenchymal pattern is stable. No dominant mass or malignant appearing microcalcifications are seen. Axillae are unremarkable. IMPRESSION: BI-RADS Category 1 No mammographic features suspicious for malignancy are identified. ACR BI-RADS Category 1: Negative. Result letter will be mailed to the patient. Note: At least 10% of breast cancer is not imaged by mammography. Dictated by: Dictated on workstation # [id number]
== END ==
LOC: RAD 11:07
PROVIDERS: ATTEND Nurse Practitioner Family
DX: Z12.31 Encounter for screening mammogram for malignant neoplasm of breast (principal)
CPT/HCPCS: 77063; 77067

== ENCOUNTER → 2020-07-26 | Outpatient (CLI) | payer BC ==
--- NOTE | 2020-07-26 09:07 | Diagnostic Imaging Report ---
PROCEDURE: CT lumbar spine without contrast. TECHNIQUE: Multiple contiguous axial images were obtained through the lumbar spine without the use of intravenous contrast. Sagittal and coronal reformations were then performed. Auto Exposure Controls were utilized during the CT exam to meet ALARA standards for radiation dose reduction. INDICATION: Left hip pain. History of previous lumbar fusion. Comparison with CT scan of 08/11/2019 of the abdomen. FINDINGS: Bilateral pedicle screws with intervertebral fusion L5-S1. Grade 1 listhesis of L5 on S1 is unchanged. There is solid-appearing fusion developing at the L5-S1 disc space. No evidence of central canal stenosis. Mild hypertrophic facet disease with no evidence of encroachment upon the neural foramen at L5-S1. There is facet and ligamentous hypertrophy causing mild trefoil stenosis at L4-L5. Remaining discs and facets appear normal. Aorta is atherosclerotic without aneurysm. IMPRESSION: 1. Solid-appearing fusion L5-S1 unchanged in alignment since previous exam. 2. Degenerative disc disease with broad-based disc bulge with posterior facet and ligamentous hypertrophy causing mild trefoil stenosis L4-L5. Dictated by: Dictated on workstation # [id number]
--- NOTE | 2020-07-26 09:18 | Diagnostic Imaging Report ---
PROCEDURE: US Thyroid. TECHNIQUE: Multiple real-time grayscale images were obtained of the thyroid in various projections. INDICATION: Follow-up thyroid nodule. Comparison with ultrasound of 08/11/2019. FINDINGS: Right lobe measures 5.5 x 1.6 x 1.2 cm. There are 2 anechoic cystic lesions present. Largest is in the upper pole measuring 7 x 5 mm. Left lobe measures 4.3 x 1 x 1 cm. There is a anechoic cyst measuring 4 mm. There is a heterogeneous relatively well-circumscribed hypoechoic mass with a few central calcifications noted in the midportion measuring approximately 10 x 4 x 6 mm. The isthmus measures 2 mm. IMPRESSION: Bilateral cysts and mass with solid mass noted in the midportion of the left lobe. This has changed very little since 08/11/2019. TI-RADS 3 Dictated by: Dictated on workstation # [id number]
== END ==
LOC: RAD 08:00
PROVIDERS: ATTEND Nurse Practitioner Family
DX: E04.2 Nontoxic multinodular goiter (principal); M51.36 Other intervertebral disc degeneration, lumbar region; M48.061 Spinal stenosis, lumbar region without neurogenic claudication; M51.26 Other intervertebral disc displacement, lumbar region; Z98.1 Arthrodesis status
CPT/HCPCS: 72131; 76536

== ENCOUNTER → 2021-07-25 | Outpatient (CLI) | payer BC | LOC: CARD 10:06 | PROVIDERS: ATTEND Internal Medicine Cardiovascular Disease | DX: I10 Essential (primary) hypertension (principal) | CPT/HCPCS: 93306 ==

== ENCOUNTER → 2021-11-20 | Outpatient (CLI) | payer BC ==
[~2021-11-20] MED LIST changes: -MAGN400T8 PO; +MGX400T PO
--- NOTE | 2021-11-20 18:41 | Diagnostic Imaging Report ---
INDICATION: Routine screening. COMPARISON is made with prior mammograms 04/25/2020 and 11/04/2018. 2-D and 3-D bilateral screening mammography was performed with CAD. Scattered fibroglandular densities are identified bilaterally. Benign-appearing nodules in the left breast are noted. There is no spiculated mass or malignant-appearing microcalcifications. Axillae are unremarkable. IMPRESSION: BI-RADS Category 2 No mammographic features suspicious for malignancy are identified. ACR BI-RADS Category 2: Benign findings. Result letter will be mailed to the patient. Note: At least 10% of breast cancer is not imaged by mammography. ' Dictated by: Dictated on workstation # [id number]
== END ==
LOC: RAD 10:15
PROVIDERS: ATTEND Internal Medicine
DX: Z12.31 Encounter for screening mammogram for malignant neoplasm of breast (principal)
CPT/HCPCS: 77063; 77067

== ENCOUNTER → 2022-12-23 | Outpatient (CLI) | payer BC ==
[~2022-12-23] MED LIST changes: +CATHETER FLUSH 10 ML SYR IVP PRN; +REGADENOSON 0.4 MG/5 ML SYR (LEXISCAN) IV ONE
[2022-12-23 12:58] VITALS: BP 174/77
--- NOTE | 2022-12-23 18:28 | Cardiology Stress Test Report ---
Stress Test Report Date of Procedure/Referring: Date of Procedure: Dec 23, 2022 PCP Loyd Farias DO Admitting Physician Admitting Physician: Attending Physician: Ashia Paniagua Indications: HTN Baseline Heart Rate: 67 Baseline Blood Pressure: Blood Pressure Systolic: 174 Blood Pressure Diastolic: 77 Baseline Vitals Vital Signs Date Time Temp Pulse Resp B/P (MAP) Pulse Ox O2 Delivery O2 Flow Rate FiO2 12/23/22 12:58 59 174/77 (109) Baseline EKG: Baseline EKG: NSR Summary After explaining the procedure to the patient, she signed a consent and then brought to the stress nuclear laboratory. Patient received 0.4 mg Lexiscan for stress test, ECG, heart rate and blood pressure were monitored continuously. Resting and stress dose of radio tracer were injected, imaging was acquired and reviewed in short axis, horizontal long axis and vertical long axis views. TID: 1.1 SSS: 0 SDS: 0 EF: 71 Patient tolerated Lexiscan well No ischemia or infarction noted on SPECT images Normal left ventricular size, ejection fraction 71% Copy Copies To 1: LOYD FARIAS BASHAR J MD Dec 23, 2022 18:28
== END ==
LOC: CARD 11:02
PROVIDERS: ATTEND Physician Assistant
DX: I10 Essential (primary) hypertension (principal)
CPT/HCPCS: 78452; 93017; A9502